=== PATIENT | female | born 1975 | race Caucasian/White ===

== ENCOUNTER 2021-02-13 16:13 | Observation (INO) | payer BC ==
[2021-02-13] MEDS ORDERED: Sodium Chloride 0.9% 1000 ML 1,000 ML IV STA ×2 (16:30→17:56)
[2021-02-13] MEDS ORDERED: Zofran 4 MG/2 ML VIAL IV ONE ×2 (16:30→17:58)
--- NOTE | 2021-02-13 16:42 | ERPHSYRPT ---
- History of Present Illness Source: patient Exam Limitations: no limitations Patient Subjective Stated Complaint: vomiting x 5 days Triage Nursing Assessment: pt to ED c/o vomiting x 5 days. COVID positive last week and abd pain/vomiting worsened since dx. reports 20-30 emesis per day when attempting to eat or drink anything, however is tolerating gatorade po on arrival to ED. pt reports she has not vomited since starting to drink this and is about half through bottle. denies bowel issues, no SOB/CP reported. rates abd pain 12/24. Physician History: 45 yo wf w +CV19 on 02/09/21 presents w cough/coryza/PRATT/N/V/myalgias/fever all starting on 02/05/21. Timing/Duration: other (02/05/21) Cough Quality/Degree: dry cough Possible Cause: no prior episodes Modifying Factors: Improves With: coughing, exertion Associated Symptoms: fever, chills, cough, muscle aches, nasal congestion, nasal drainage, shortness of breath Allergies/Adverse Reactions: No Known Drug Allergies Allergy (Verified 02/13/21 16:32) Home Medications: Amitriptyline HCl [Elavil] 50 mg PO DAILY 09/07/16 [History] Escitalopram Oxalate [Lexapro] 20 mg PO BID 09/07/16 [History] OLANZapine [Zyprexa] 15 mg PO DAILY 09/07/16 [History] PANTOPRAZOLE 40 mg Tablet [Protonix 40MG Tablet] 40 mg PO DAILY 09/07/16 [History] Pramipexole Di-HCl [Mirapex] 0.125 mg PO DAILY 09/07/16 [History] Triamterene/Hydrochlorothiazid [Triamterene-Hctz 37.5-25 mg Cp] 1 each PO DAILY 09/07/16 [History] Trazodone HCl 300 mg PO HS 06/05/17 [History] Celecoxib [Celebrex] 200 mg PO BID 09/23/17 [History] Zolpidem Tartrate 10 mg [Ambien 10 MG] 10 mg PO QHS 02/13/21 [History] Hx Tetanus, Diphtheria Vaccination/Date Given: Yes Hx Influenza Vaccination/Date Given: No Hx Pneumococcal Vaccination/Date Given: No Immunizations Up to Date: No Travel Risk - International Travel Have you traveled outside of the country in past 3 weeks: No - Coronavirus Screening Symptoms: Fever, Cough: New Onset, Vomiting/Diarrhea, Loss of Taste or Smell, Headaches/Body Aches/Fatigue Close contact with a COVID-19 positive Pt in past 14-21 Days: Yes - Vaccine Status Have you recieved a Covid-19 vaccination: No - Review of Systems Constitutional: Fever, Chills, Fatigue, Lethargy Eyes: No Symptoms Ears, Nose, & Throat: No Symptoms, Snoring Respiratory: Cough, Dyspnea Cardiac: No Symptoms Abdominal/Gastrointestinal: No Symptoms, Nausea, Vomiting, No Diarrhea Genitourinary Symptoms: No Symptoms Musculoskeletal: No Symptoms, Arthralgias, Myalgias Skin: No Symptoms Neurological: No Symptoms Psychological: No Symptoms Endocrine: No Symptoms Hematologic/Lymphatic: No Symptoms Immunological/Allergic: No Symptoms - Past Medical History Pertinent Past Medical History: Yes Neurological History: No Pertinent History ENT History: No Pertinent History Cardiac History: Hypertension Respiratory History: No Pertinent History Endocrine Medical History: No Pertinent History Musculoskeletal History: Osteoarthritis GI Medical History: No Pertinent History History: No Pertinent History Psycho-Social History: No Pertinent History Female Reproductive Disorders: No Pertinent History - Past Surgical History Past Surgical History: Yes Neuro Surgical History: No Pertinent History Cardiac: No Pertinent History Respiratory: No Pertinent History Gastrointestinal: Cholecystectomy, Other Genitourinary: No Pertinent History Musculoskeletal: No Pertinent History Female Surgical History: No Pertinent History Other Surgical History: T&A. gastric bypass -2009 - Social History Smoking Status: Never smoker Exposure to second hand smoke: No Drug Use: none Patient Lives Alone: No Significant Family History: no pertinent family hx - Female History Hx Now: No - Nursing Vital Signs Nursing Vital Signs: Initial Vital Signs Temperature 99.5 F 02/13/21 16:23 Pulse Rate 100 H 02/13/21 16:23 Respiratory Rate 20 02/13/21 16:23 Blood Pressure 123/82 02/13/21 16:23 O2 Sat by Pulse Oximetry 92 L 02/13/21 16:23 Pain Scale Pain Intensity 6 Low sats/Tachycardic - Physical Exam General Appearance: no apparent distress Eye Exam: PERRL/EOMI, eyes nml inspection Ears, Nose, Throat Exam: normal ENT inspection, TMs normal Neck Exam: normal inspection, non-tender, supple, full range of motion, No meningismus, No mass, No Brudzinski, No Kernig's Respiratory Exam: normal breath sounds, lungs clear, airway intact, No respiratory distress Cardiovascular Exam: tachycardia Gastrointestinal/Abdomen Exam: soft, normal bowel sounds, No tenderness Back Exam: normal inspection, normal range of motion, No CVA tenderness Extremity Exam: normal inspection, normal range of motion Neurologic Exam: alert, oriented x 3, cooperative, 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, normal mood/affect, sensation nml, No motor deficits, No sensory deficit Skin Exam: normal color, warm, dry Lymphatic Exam: No adenopathy SpO2 Interpretation: normal SpO2: 92 (Borderline) - Course Nursing assessment & vital signs reviewed: Yes - Radiology Exams Chest X-ray Interpretation: Interpreted by me (CV19 appearance) Ordered Tests: Active Orders 24 hr Category Date Time Status IV Insertion STAT Care 02/13/21 16:30 Completed CHEST 1 VIEW (PORTABLE) Stat Exams 02/13/21 17:33 Taken CBC W DIFF Stat Lab 02/13/21 16:38 Completed CMP AM.LAB Lab 02/14/21 04:00 Ordered CMP Stat Lab 02/13/21 16:38 Completed D-DIMER QUANTITATIVE Routine Lab 02/13/21 19:40 Completed NT PRO BNP AM.LAB Lab 02/14/21 04:00 Ordered TROPONIN Q3H Lab 02/13/21 16:38 Completed TROPONIN Q3H Lab 02/13/21 19:40 Completed Medication Summary Generic Name Dose Route Start Last Admin Trade Name Freq PRN Reason Stop Dose Admin Acetaminophen 1,000 mg 02/13/21 21:13 Tylenol Extra Strength 500 Mg PO 03/15/21 21:12 Q4H PRN PRN HEADACHE Al Hydrox/Mg Hydrox/Simethicone 30 ml 02/13/21 21:19 02/14/21 00:26 Maalox Es 30 Ml Unit Dose PO 03/15/21 21:18 30 ml Q2H PRN PRN Administration INDIGESTION Albuterol Sulfate 4 puff 02/13/21 18:21 Ventolin Common Canister IH 03/15/21 18:20 Q4H PRN PRN SHORTNESS OF BREATH/WHEEZING Celecoxib 200 mg 02/13/21 22:00 02/13/21 22:48 Celebrex 100 Mg PO 03/15/21 21:59 200 mg BID BLOSSOM Administration Dexamethasone Sodium Phosphate 8 mg 02/14/21 10:00 Decadron 4 Mg Inj IV 03/16/21 09:59 DAILY BLOSSOM Enoxaparin Sodium 40 mg 02/14/21 10:00 02/13/21 21:28 Enoxaparin Sodium SQ 03/16/21 09:59 40 mg DAILY BLOSSOM Administration Escitalopram Oxalate 20 mg 02/13/21 22:00 02/13/21 22:48 Lexapro 10 Mg PO 03/15/21 21:59 20 mg BID BLOSSOM Administration Famotidine 20 mg 02/13/21 22:00 02/13/21 21:28 Pepcid 20 Mg Vial IV 03/15/21 21:59 20 mg Q12HT BLOSSOM Administration Remdesivir 100 mg/ Sodium 100 mls @ 100 mls/hr 02/14/21 18:26 Chloride IV 02/17/21 19:25 Q24H BLOSSOM Sodium Chloride 1,000 mls @ 100 mls/hr 02/13/21 18:30 02/13/21 19:57 Sodium Chloride 0.9% 1000 Ml IV 03/15/21 18:29 100 mls/hr .Q10H BLOSSOM Administration Insulin Human Lispro 0 unit 02/13/21 21:21 Humalog SQ 03/15/21 21:20 UD PRN HYPERGLYCEMIA Magnesium Hydroxide 30 ml 02/13/21 18:26 Milk Of Magnesia 30 Ml PO 03/15/21 18:25 HS PRN PRN CONSTIPATION Ondansetron HCl 4 mg 02/13/21 18:21 02/13/21 22:49 Zofran 4 Mg/2 Ml Vial IV 03/15/21 18:20 4 mg Q6H PRN PRN Administration NAUSEA/VOMITING Pantoprazole Sodium 40 mg 02/14/21 10:00 Protonix 40 Mg Iv IV 03/16/21 09:59 Q24H10 BLOSSOM Trazodone HCl 300 mg 02/13/21 22:00 02/13/21 22:48 Desyrel 150 Mg PO 03/15/21 21:59 300 mg HS BLOSSOM Administration Zolpidem Tartrate 10 mg 02/13/21 22:00 02/13/21 22:49 Ambien 10 Mg PO 03/15/21 21:59 10 mg HS BLOSSOM Administration Discontinued Medications Generic Name Dose Route Start Last Admin Trade Name Freq PRN Reason Stop Dose Admin Dexamethasone Sodium Phosphate 6 mg 02/13/21 17:57 02/13/21 18:12 Decadron 10mg Inj. IV 02/13/21 17:58 6 mg STAT ONE Administration Dexamethasone Sodium Phosphate Confirm 02/13/21 18:10 Decadron 10mg Inj. Administered 02/13/21 18:11 Dose 10 mg .ROUTE .STK-MED ONE Dexamethasone Sodium Phosphate 4 mg 02/14/21 10:00 Decadron 4 Mg Inj IV 03/16/21 09:59 DAILY BLOSSOM Docusate Sodium 100 mg 02/13/21 18:26 Colace 100 Mg PO 03/15/21 18:25 BIDPRN PRN CONSTIPATION Enoxaparin Sodium Confirm 02/13/21 21:27 Enoxaparin Sodium Administered 02/13/21 21:28 Dose 40 mg SQ .STK-MED ONE Sodium Chloride 1,000 mls @ 999 mls/hr 02/13/21 16:30 02/13/21 18:19 Sodium Chloride 0.9% 1000 Ml IV 02/13/21 17:30 Infused .Q1H1M STA Infusion Sodium Chloride Confirm 02/13/21 16:43 Sodium Chloride 0.9% 1000 Ml Administered 02/13/21 16:44 Dose 1,000 mls @ ud .ROUTE .STK-MED ONE Sodium Chloride 1,000 mls @ 999 mls/hr 02/13/21 17:56 02/13/21 19:27 Sodium Chloride 0.9% 1000 Ml IV 02/13/21 18:56 Infused .Q1H1M STA Infusion Remdesivir 200 mg/ Sodium 250 mls @ 125 mls/hr 02/13/21 18:00 02/13/21 21:28 Chloride IV 02/13/21 19:59 125 mls/hr ONCE ONE Administration Sodium Chloride Confirm 02/13/21 18:10 Sodium Chloride 0.9% 1000 Ml Administered 02/13/21 18:11 Dose 1,000 mls @ ud .ROUTE .STK-MED ONE Insulin Human Lispro 0 unit 02/13/21 18:21 Humalog SQ 03/15/21 18:20 UD PRN HYPERGLYCEMIA Ondansetron HCl 4 mg 02/13/21 16:30 02/13/21 16:45 Zofran 4 Mg/2 Ml Vial IV 02/13/21 16:31 4 mg STAT ONE Administration Ondansetron HCl Confirm 02/13/21 16:43 Zofran 4 Mg/2 Ml Vial Administered 02/13/21 16:44 Dose 4 mg .ROUTE .STK-MED ONE Ondansetron HCl 4 mg 02/13/21 17:58 02/13/21 18:12 Zofran 4 Mg/2 Ml Vial IV 02/13/21 17:59 4 mg STAT ONE Administration Ondansetron HCl Confirm 02/13/21 18:10 Zofran 4 Mg/2 Ml Vial Administered 02/13/21 18:11 Dose 4 mg .ROUTE .STK-MED ONE Lab/Rad Data: Laboratory Result Diagrams 02/13/21 16:38 02/13/21 16:38 Laboratory Results 02/13/21 02/13/21 02/13/21 Range/Units 19:40 19:40 16:38 WBC (4.0-10.5) K/mm3 RBC (4.1-5.4) M/mm3 Hgb (12.0-16.0) gm/dl Hct (35-47) % MCV (78-100) fl MCH (26-32) pg MCHC (32-36) g/dl RDW (11.5-14.0) % Plt Count (150-450) K/mm3 MPV (7.5-11.0) fl Gran % (36.0-66.0) % Eos # (Auto) (0-0.5) Absolute Lymphs (auto) (1.0-4.6) Absolute Monos (auto) (0.0-1.3) Lymphocytes % (24.0-44.0) % Monocytes % (0.0-12.0) % Eosinophils % (0.00-5.0) % Basophils % (0.0-0.4) % Absolute Granulocytes (1.4-6.9) Basophils # (0-0.4) D-Dimer 1561 H* (215-500) ng/mL Sodium 131 L (137-145) mmol/L Potassium 3.1 L (3.5-5.1) mmol/L Chloride 95 L (98-107) mmol/L Carbon Dioxide 22 (22-30) mmol/L Anion Gap 17.2 H (5-15) MEQ/L BUN 17 (7-17) mg/dL Creatinine 1.17 H (0.52-1.04) mg/dL Estimated GFR 52.9 ML/MIN Glucose 180 H (74-106) mg/dL Calcium 8.9 (8.4-10.2) mg/dL Total Bilirubin 0.50 (0.2-1.3) mg/dL AST 57 H (14-36) U/L ALT 30 (0-35) U/L Alkaline Phosphatase 80 (38-126) U/L Troponin I < 0.012 (0.000-0.034) ng/mL Serum Total Protein 8.1 (6.3-8.2) g/dL Albumin 4.4 (3.5-5.0) g/dL 02/13/21 02/13/21 Range/Units 16:38 16:38 WBC 9.0 (4.0-10.5) K/mm3 RBC 5.12 (4.1-5.4) M/mm3 Hgb 14.4 (12.0-16.0) gm/dl Hct 42.9 (35-47) % MCV 83.8 (78-100) fl MCH 28.1 (26-32) pg MCHC 33.6 (32-36) g/dl RDW 13.5 (11.5-14.0) % Plt Count 231 (150-450) K/mm3 MPV 10.2 (7.5-11.0) fl Gran % 79.5 H (36.0-66.0) % Eos # (Auto) 0 (0-0.5) Absolute Lymphs (auto) 1.36 (1.0-4.6) Absolute Monos (auto) 0.49 (0.0-1.3) Lymphocytes % 15.0 L (24.0-44.0) % Monocytes % 5.4 (0.0-12.0) % Eosinophils % 0.0 (0.00-5.0) % Basophils % 0.1 (0.0-0.4) % Absolute Granulocytes 7.18 H (1.4-6.9) Basophils # 0.01 (0-0.4) D-Dimer (215-500) ng/mL Sodium (137-145) mmol/L Potassium (3.5-5.1) mmol/L Chloride (98-107) mmol/L Carbon Dioxide (22-30) mmol/L Anion Gap (5-15) MEQ/L BUN (7-17) mg/dL Creatinine (0.52-1.04) mg/dL Estimated GFR ML/MIN Glucose (74-106) mg/dL Calcium (8.4-10.2) mg/dL Total Bilirubin (0.2-1.3) mg/dL AST (14-36) U/L ALT (0-35) U/L Alkaline Phosphatase (38-126) U/L Troponin I < 0.012 (0.000-0.034) ng/mL Serum Total Protein (6.3-8.2) g/dL Albumin (3.5-5.0) g/dL - Progress Progress: improved Progress Note: 02/13/21 17:59 1L NS IV xw 4mg IV Zofran x2 6mg IV Decadron 02/14/21 02:[address] Casarez Discussed with Dr.: Other (Admit per Dr. Copeland) Counseled pt/family regarding: lab results, diagnosis, need for follow-up, rad results - Departure Departure Disposition: Observation Clinical Impression: COVID-19 Condition: Stable Critical Care Time: No
[2021-02-13] MEDS ORDERED: Zofran 4 MG/2 ML VIAL ONE ×2 (16:43→18:10)
[2021-02-13] MEDS ORDERED: Sodium Chloride 0.9% 1000 ML 1,000 ML ONE ×2 (16:43→18:10)
[2021-02-13 16:54] LABS: Absolute Neutrophil Ct (ANC) 7.18 (1.4-6.9); BASOPHIL % 0.1 % (0.0-0.4); Basophil (Absolute #) 0.01 (0-0.4); Eosinophil (Absolute #) 0 (0-0.5); Hematocrit 42.9 % (35-47); Hemoglobin 14.4 gm/dl (12.0-16.0); Lymphocyte (Absolute #) 1.36 (1.0-4.6); Mean Cell Volume 83.8 fl (78-100); Mean Corpuscular Hemoglobin 28.1 pg (26-32); Mean Corpuscular Hgb Concent. 33.6 g/dl (32-36); Mean Platelet Volume 10.2 fl (7.5-11.0); Monocyte (Absolute #) 0.49 (0.0-1.3); Monocytes % 5.4 % (0.0-12.0); Neutrophil % 79.5 % (36.0-66.0); Platelet Count 231 K/mm3 (150-450); Red Blood Count 5.12 M/mm3 (4.1-5.4); Red Cell Distribution Width 13.5 % (11.5-14.0)
[2021-02-13 17:04] LABS: ALBUMIN 4.4 g/dL (3.5-5.0); ANION GAP 17.2 MEQ/L (5-15); BILIRUBIN,TOTAL 0.5 mg/dL (0.2-1.3); Calcium 8.9 mg/dL (8.4-10.2); Creatinine 1 1.17 mg/dL (0.52-1.04); EST GLOMERULAR FILTRATION RATE 52.9 ML/MIN; Potassium 3.1 mmol/L (3.5-5.1); Total Protein 8.1 g/dL (6.3-8.2)
[2021-02-13] MEDS ORDERED: DECADRON 10MG INJ. IV ONE (17:57)
[2021-02-13] MEDS ORDERED: REMDESIVIR 200 MG in Sodium Chloride 0.9% 250 ML 250 ML IV ONE (18:00)
[2021-02-13] MEDS ORDERED: DECADRON 10MG INJ. ONE (18:10)
[2021-02-13] MEDS ORDERED: VENTOLIN COMMON CANISTER IH PRN (18:21)
[2021-02-13] MEDS ORDERED: HUMALOG SQ PRN ×2 (18:21→21:21)
[2021-02-13] MEDS ORDERED: Zofran 4 MG/2 ML VIAL IV PRN (18:21)
[2021-02-13] MEDS ORDERED: MILK OF MAGNESIA 30 ML PO PRN (18:26)
[2021-02-13] MEDS ORDERED: Colace 100 MG PO PRN (18:26)
[2021-02-13] MEDS: Sodium Chloride 0.9% 1000 ML 1,000 ML IV SCH (19:57)
[2021-02-13] MEDS ORDERED: TYLENOL EXTRA STRENGTH 500 MG PO PRN (21:13)
[2021-02-13] MEDS ORDERED: ENOXAPARIN SODIUM SQ ONE (21:27)
[2021-02-13] MEDS: ENOXAPARIN SODIUM SQ SCH (21:28)
[2021-02-13] MEDS: Pepcid 20 MG VIAL IV SCH (21:28)
[2021-02-13] MEDS: MAALOX ES 30 ML UNIT DOSE PO PRN (22:40)
[2021-02-13] MEDS: celeBREX 100 MG PO SCH (22:48)
[2021-02-13] MEDS: Desyrel 150 MG PO SCH (22:48)
[2021-02-13] MEDS: Lexapro 10 MG PO SCH (22:48)
[2021-02-13] MEDS: Ambien 10 MG PO SCH (22:49)
[2021-02-14] MEDS: MAALOX ES 30 ML UNIT DOSE PO PRN ×4 (00:26→15:36)
[2021-02-14 05:39] LABS: Hematocrit 40.4 % (35-47); Hemoglobin 13.1 gm/dl (12.0-16.0); Mean Corpuscular Hemoglobin 27.9 pg (26-32); Mean Corpuscular Hgb Concent. 32.4 g/dl (32-36); Mean Platelet Volume 10.2 fl (7.5-11.0); Platelet Count 212 K/mm3 (150-450); Red Cell Distribution Width 13.6 % (11.5-14.0)
[2021-02-14 06:32] LABS: ALBUMIN 3.8 g/dL (3.5-5.0); ALKALINE PHOSPHATASE 66 U/L (38-126); ANION GAP 15.9 MEQ/L (5-15); BLOOD UREA NITROGEN 17 mg/dL (7-17); CHLORIDE 102 mmol/L (98-107); Calcium 7.7 mg/dL (8.4-10.2); Carbon Dioxide 21 mmol/L (22-30); Creatinine 1 0.91 mg/dL (0.52-1.04); EST GLOMERULAR FILTRATION RATE > 60.0 ML/MIN; Glucose 248 mg/dL (74-106); NT PRO BNP 94.3 pg/mL (0-450); Potassium 3.5 mmol/L (3.5-5.1); SGOT/AST 52 U/L (14-36); SGPT/ALT 30 U/L (0-35); SODIUM 136 mmol/L (137-145); Total Protein 7.2 g/dL (6.3-8.2)
[2021-02-14 08:01] LABS: Lymphocytes 26 % (24-44); Monocyte 2 % (0.0-12.0); Neutrophils 72 % (36.0-66.0); Platelet Estimate NORMAL (NORMAL); Total Cells Counted 100; Toxic Granulation 1+
--- NOTE | 2021-02-14 08:35 | XRAY ---
Indication: Positive Covid 19. Comparison: November 26, 2019. Portable chest demonstrates new bilateral patchy airspace disease without consolidation/large effusion. Again a few incidental calcified granulomas. Remaining heart and bony thorax unremarkable.
[2021-02-14] MEDS ORDERED: OLANZAPINE 15 MG PO SCH (10:00)
[2021-02-14] MEDS ORDERED: AMITRIPTYLINE HCL 50 MG PO SCH (10:00)
[2021-02-14] MEDS ORDERED: Decadron 4 MG INJ IV SCH ×2 (10:00)
[2021-02-14] MEDS ORDERED: NON-FORMULARY ITEM (Triamterene/Hydrochlorothiazid [Triamterene-Hctz 37.5-25 Mg Cp] 1 EACH PO SCH (10:00)
[2021-02-14] MEDS ORDERED: PROTONIX 40 MG IV IV SCH (10:00)
[2021-02-14] MEDS ORDERED: NON-FORMULARY ITEM (Pramipexole Di-Hcl [Mirapex] 0.125 MG) PO SCH (10:00)
[2021-02-14] MEDS: Sodium Chloride 0.9% 1000 ML 1,000 ML IV SCH (11:28)
[2021-02-14] MEDS: Protonix 40MG Tablet PO SCH (11:28)
[2021-02-14] MEDS: ENOXAPARIN SODIUM SQ SCH (11:28)
[2021-02-14] MEDS: DECADRON 10MG INJ. IV SCH (11:28)
[2021-02-14] MEDS: Pepcid 20 MG VIAL IV SCH ×2 (11:29→20:54)
[2021-02-14] MEDS: celeBREX 100 MG PO SCH ×2 (11:30→20:55)
[2021-02-14] MEDS: zyPREXA 5MG TABLET PO SCH (11:31)
[2021-02-14] MEDS: Lexapro 10 MG PO SCH ×2 (11:31→20:57)
[2021-02-14] MEDS: Maxzide-25MG Tablet PO SCH (11:32)
[2021-02-14] MEDS: Mirapex 0.5 MG Tablet PO SCH (11:33)
--- NOTE | 2021-02-14 11:53 | HP ---
CHIEF COMPLAINT: Vomiting for five days. HISTORY OF PRESENT ILLNESS: The patient is a 45-year-old white female who states she tested positive for COVID four days ago and has been vomiting since that time. She has no history of ulcers. She has had her gallbladder taken out and had gastric bypass surgery but no problems until this happened. She has been able to sip fluids. No diarrhea. No shortness of breath. Abdominal pain but more in her esophagus. 0Symptoms of fever, cough, new onset vomiting. No diarrhea. She said she has a loss of taste and aching all over. She was in contact with a COVID positive patient seven days ago. has had the vaccine and he is negative and the kids have not caught it yet. She has got teenage kids, I guess. MEDICATIONS: Amitriptyline 50, Lexapro 20, [place] 10/325 every 4 hours PRN knee pain, back pain. Lisinopril 20 approximately 350 t.i.d., Zyprexa 15 q.d. for depression, Protonix 40 q.d., MiraLAX 0.125 for restless leg I assume, Dyazide 1 q.d., trazodone 300 h.s. for sleep, Celebrex 200 q.d., Neurontin 300 to 600 q.h.s. for restless leg and nerve pain, Zanaflex 4 mg h.s. ALLERGIES: NKDA. PAST MEDICAL HISTORY: Hypertension. PAST SURGICAL HISTORY: History of gastric bypass. Cholecystectomy. REVIEW OF SYSTEMS: CONSTITUTIONAL: Fever, chills, sweats. HEENT: No specific problems. RESPIRATORY: She said she does have an occasional cough. CARDIAC: No chest pain. Hypertension. ABDOMEN: Nausea, vomiting severe. History of gastric bypass. Cholecystectomy. : No problems urinating. EXTREMITIES: Apparently she has restless leg syndrome. PSYCHOLOGIC: Apparently she had in the past severe depression and on medication and she said she has severe problems falling asleep for many years. NEUROLOGIC: No complaints. SOCIAL HISTORY: Nonsmoker. . Two teenage children. PHYSICAL EXAMINATION: VITAL SIGNS: Temperature 100F, pulse 100, respirations 20. HEENT: Pupils equal and reactive to light. Hearing and seeing. NECK: Normal. CHEST: Clear. CVS: No murmurs or gallops. ABDOMEN: Obese. Tender all over, increased bowel sounds. EXTREMITIES: No edema. IMPRESSION: The patient has COVID gastroenteritis. She also had some COVID pneumonitis as the O2 is dropping and she has been placed on oxygen and is now at 4 liters. She is comfortable, pleasant and will continue with Dexamethasone, Zofran, Remdesivir and anticoagulation.
[2021-02-14] MEDS ORDERED: MORPHINE SULFATE 10 MG/ML SQ PRN (13:58)
[2021-02-14] MEDS ORDERED: REMDESIVIR 100 MG in Sodium Chloride 0.9% 100 ML BAG 100 ML IV SCH (17:00)
[2021-02-14] MEDS ORDERED: Carafate SUSPENSION 1000 MG/10 ML PO SCH (17:19)
[2021-02-14] MEDS ORDERED: MORPHINE SULFATE 10 MG/ML IV PRN (17:20)
[2021-02-14] MEDS: Carafate SUSPENSION 1000 MG/10 ML PO SCH ×2 (17:40→20:48)
[2021-02-14] MEDS: Ambien 10 MG PO SCH (20:53)
[2021-02-14] MEDS: Desyrel 150 MG PO SCH (20:58)
[2021-02-15 05:52] LABS: Absolute Neutrophil Ct (ANC) 7.86 (1.4-6.9); Basophil (Absolute #) 0 (0-0.4); Eosinophil (Absolute #) 0 (0-0.5); Hematocrit 38.8 % (35-47); Hemoglobin 12.5 gm/dl (12.0-16.0); Lymphocyte (Absolute #) 1.64 (1.0-4.6); Lymphocytes % 16.2 % (24.0-44.0); Mean Corpuscular Hemoglobin 27.7 pg (26-32); Mean Corpuscular Hgb Concent. 32.2 g/dl (32-36); Mean Platelet Volume 10.8 fl (7.5-11.0); Monocyte (Absolute #) 0.64 (0.0-1.3); Monocytes % 6.3 % (0.0-12.0); Neutrophil % 77.5 % (36.0-66.0); Platelet Count 267 K/mm3 (150-450); Red Blood Count 4.51 M/mm3 (4.1-5.4); Red Cell Distribution Width 13.9 % (11.5-14.0); White Blood Count 10.1 K/mm3 (4.0-10.5)
[2021-02-15 06:11] LABS: INR 1.01 (0.8-3.0); PROTIME 11.9 SECONDS (9.4-12.5)
[2021-02-15 06:33] LABS: ALBUMIN 3.4 g/dL (3.5-5.0); ALKALINE PHOSPHATASE 228 U/L (38-126); ANION GAP 12.9 MEQ/L (5-15); BLOOD UREA NITROGEN 16 mg/dL (7-17); CHLORIDE 105 mmol/L (98-107); Calcium 7.9 mg/dL (8.4-10.2); Carbon Dioxide 26 mmol/L (22-30); Creatinine 1 0.86 mg/dL (0.52-1.04); EST GLOMERULAR FILTRATION RATE > 60.0 ML/MIN; Glucose 174 mg/dL (74-106); Potassium 3.9 mmol/L (3.5-5.1); SGPT/ALT 480 U/L (0-35); SODIUM 140 mmol/L (137-145); Total Protein 6.6 g/dL (6.3-8.2)
[2021-02-15 06:57] LABS: SGOT/AST 970 U/L (14-36)
[2021-02-15 07:19] VITALS: BP 122/67
[2021-02-15] MEDS: Carafate SUSPENSION 1000 MG/10 ML PO SCH (07:59)
[2021-02-15] MEDS: Sodium Chloride 0.9% 1000 ML 1,000 ML IV SCH (08:26)
[2021-02-15] MEDS ORDERED: ENOXAPARIN SODIUM SQ SCH (10:00)
[2021-02-15] MEDS: Pepcid 20 MG VIAL IV SCH (10:11)
[2021-02-15] MEDS: Protonix 40MG Tablet PO SCH (10:11)
[2021-02-15] MEDS: DECADRON 10MG INJ. IV SCH (10:11)
[2021-02-15] MEDS: Mirapex 0.5 MG Tablet PO SCH (10:12)
[2021-02-15] MEDS: zyPREXA 5MG TABLET PO SCH (10:12)
[2021-02-15] MEDS: Maxzide-25MG Tablet PO SCH (10:12)
[2021-02-15] MEDS: celeBREX 100 MG PO SCH (10:13)
[2021-02-15] MEDS: Lexapro 10 MG PO SCH (10:13)
[2021-02-15 10:36] VITALS: PULSE 62; O2SAT 95
== END 2021-02-15 11:17 | disposition home or self-care (01) ==
LOC: ED 16:13 → MED SURG 20:14
PROVIDERS: ADMIT Family Medicine; ATTEND Family Medicine
DX: K52.9 Noninfective gastroenteritis and colitis, unspecified (principal); U07.1 COVID-19; J12.82 Pneumonia due to coronavirus disease 2019; Z79.899 Other long term (current) drug therapy; R51.9 Headache, unspecified; I10 Essential (primary) hypertension; Z98.84 Bariatric surgery status
CPT/HCPCS: 36000; 36415; 71045; 80053; 82947; 83036; 83880; 84484; 85025; 85379; 85610; 93268; 94762; 96360; 96374; 96375; 96376; 99285; G0378; J1100; J1650; J1817; J2270; J2405; A9270-GY

== ENCOUNTER 2023-05-21 02:29 | Observation (INO) | payer BC ==
--- NOTE | 2023-05-21 02:33 | ERPHSYRPT ---
- History of Present Illness Time Seen by Provider: 05/21/23 02:33 Source: patient Exam Limitations: no limitations Physician History: This is an obese 47-year-old white female patient of Dr. Marx who has had 2 to 3-day history of worsening shortness of breath, productive cough of yellowish sputum and low-grade fever. She was seen at [facility] on Saturday prior to this evaluation and given a prescription for albuterol inhaler, Tessalon Perle cough suppressant, and steroid Dosepak. Her symptoms have not improved. She does not have chest pain. Patient states that she also was swabbed for viral illnesses and they were negative. Her room air oxygen saturation level is 91 to 92%. Patient has a history of gastroesophageal reflux disease but no pulmonary issue s. She has no known heart issues. Patient drove herself into the hospital emergency department. She states she cannot get a ride home. Timing/Duration: day(s) (2 to 3 days) Severity of Dyspnea-Max: moderate Severity of Dyspnea-Current: moderate Possible Cause: no prior episodes Modifying Factors: Improves With: coughing, deep breath Associated Symptoms: cough, wheezing, productive cough, No chest pain/discomfort Allergies/Adverse Reactions: No Known Drug Allergies Allergy (Verified 05/21/23 02:30) Home Medications: Escitalopram Oxalate [Lexapro] 20 mg PO BID 09/07/16 [History] PANTOPRAZOLE 40 mg Tablet [Protonix 40MG Tablet] 40 mg PO DAILY 09/07/16 [History] Pramipexole Di-HCl [Mirapex] 0.125 mg PO DAILY 09/07/16 [History] Trazodone HCl 300 mg PO HS 06/05/17 [History] Zolpidem Tartrate 10 mg [Ambien 10 MG] 10 mg PO QHS 02/13/21 [History] Albuterol Sulfate [Proair Respiclick] 2 puff IH Q4H PRN PRN 05/21/23 [History] Benzonatate 200 mg PO TID 05/21/23 [History] Methylprednisolone 4 mg [Medrol 4 mg] 4 mg PO UD 05/21/23 [History] Hx Tetanus, Diphtheria Vaccination/Date Given: Yes Hx Influenza Vaccination/Date Given: No Hx Pneumococcal Vaccination/Date Given: No Travel Risk - International Travel Have you traveled outside of the country in past 3 weeks: No - Coronavirus Screening Are you exhibiting any of the following symptoms?: Yes Symptoms: Cough: New Onset, Shortness of Breath Close contact with a COVID-19 positive Pt in past 14-21 Days: No - Vaccine Status Have you recieved a Covid-19 vaccination: No - Review of Systems Constitutional: No Symptoms Eyes: No Symptoms Ears, Nose, & Throat: No Symptoms Respiratory: Cough, Dyspnea on Exertion ([place]), Wheezing Cardiac: No Symptoms Abdominal/Gastrointestinal: No Symptoms Genitourinary Symptoms: No Symptoms Musculoskeletal: No Symptoms Skin: No Symptoms Neurological: No Symptoms Psychological: No Symptoms Endocrine: No Symptoms Hematologic/Lymphatic: No Symptoms Immunological/Allergic: No Symptoms All Other Systems: Reviewed and Negative - Past Medical History Pertinent Past Medical History: Yes Neurological History: No Pertinent History ENT History: No Pertinent History Cardiac History: Hypertension Respiratory History: No Pertinent History Endocrine Medical History: No Pertinent History Musculoskeletal History: Osteoarthritis GI Medical History: No Pertinent History History: No Pertinent History Psycho-Social History: No Pertinent History Female Reproductive Disorders: No Pertinent History - Past Surgical History Past Surgical History: Yes Neuro Surgical History: No Pertinent History Cardiac: No Pertinent History Respiratory: No Pertinent History Gastrointestinal: Cholecystectomy, Other Genitourinary: No Pertinent History Musculoskeletal: No Pertinent History Female Surgical History: No Pertinent History Other Surgical History: T&A. gastric bypass -2009 - Social History Smoking Status: Never smoker Exposure to second hand smoke: No Drug Use: none Patient Lives Alone: No Significant Family History: no pertinent family hx - Nursing Vital Signs Nursing Vital Signs: Initial Vital Signs Temperature 98.1 F 05/21/23 02:30 Pulse Rate 86 05/21/23 02:30 Respiratory Rate 22 05/21/23 02:30 Blood Pressure 149/88 05/21/23 02:30 O2 Sat by Pulse Oximetry 94 L 05/21/23 02:30 Pain Scale Pain Intensity 7 - Physical Exam General Appearance: no apparent distress, alert, anxiety, obese Eye Exam: PERRL/EOMI, eyes nml inspection Ears, Nose, Throat Exam: hearing grossly normal, normal ENT inspection, normal pharynx Neck Exam: normal inspection, non-tender, supple, full range of motion Respiratory Exam: airway intact, wheezing (Bilateral expiratory), No chest tenderness, No respiratory distress Cardiovascular/Chest Exam: normal heart sounds, regular rate/rhythm, normal peripheral pulses Abdominal/Gastrointestinal Exam: soft, normal bowel sounds, No tenderness Rectal Exam: not done Extremity Exam: non-tender, normal range of motion, normal inspection Neurologic Exam: alert, oriented x 3, cooperative, 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 as tested, normal mood/affect, nml cerebellar function, nml station & gait, sensation nml Skin Exam: normal color, warm, dry Lymphatic Exam: No adenopathy SpO2 Interpretation: borderline oxygenation O2 Delivery: Room Air - Course Nursing assessment & vital signs reviewed: Yes EKG Interpreted by Me: RATE (86), Sinus Rhythm, NORMAL AXIS, NORMAL INTERVALS, NORMAL QRS, NORMAL ST-T, Other (No acute ischemic changes on today's twelve-lead EKG.) Ordered Tests: Active Orders 24 hr Category Date Time Status EKG-ER Only STAT Care 05/21/23 02:51 Active IV Insertion STAT Care 05/21/23 02:51 Active CHEST 1 VIEW (PORTABLE) Stat Exams 05/21/23 02:54 Completed CHEST WITH CONTRAST [CT] Stat Exams 05/21/23 05:16 Completed LIVER OR SPLEEN [US] Stat Exams 05/21/23 06:27 Ordered BLOOD CULTURE Stat Lab 05/21/23 03:15 Received CBC AM.LAB Lab 05/22/23 04:00 Ordered CBC AM.LAB Lab 05/23/23 04:00 Ordered CBC AM.LAB Lab 05/24/23 04:00 Ordered CBC W DIFF Stat Lab 05/21/23 03:10 Completed CMP AM.LAB Lab 05/22/23 04:00 Ordered CMP AM.LAB Lab 05/23/23 04:00 Ordered CMP AM.LAB Lab 05/24/23 04:00 Ordered CMP AM.LAB Lab 05/25/23 04:00 Ordered CMP Stat Lab 05/21/23 03:10 Completed CULTURE,SPUTUM Stat Lab 05/21/23 05:18 Ordered MONO SCREEN Stat Lab 05/21/23 03:10 Completed NT PRO BNPII Stat Lab 05/21/23 03:10 Completed TROPONIN Q4H Lab 05/21/23 03:15 Completed TROPONIN Q4H Lab 05/21/23 07:00 Ordered TROPONIN Q4H Lab 05/21/23 11:00 Ordered Respiratory Therapy Assessment DAILY RT 05/21/23 03:11 Active Medication Summary Generic Name Dose Route Start Last Admin Trade Name Young PRN Reason Stop Dose Admin Sodium Chloride 500 mls @ 50 mls/hr 05/21/23 05:30 05/21/23 05:45 Sodium Chloride 0.9% 500 Ml IV 06/20/23 05:29 50 mls/hr .Q10H BLOSSOM Administration Discontinued Medications Generic Name Dose Route Start Last Admin Trade Name Young PRN Reason Stop Dose Admin Hydrocodone Bitart/Acetaminophen 10 ml 05/21/23 05:59 05/21/23 06:05 Hydrocodone/Acetaminophen 5 Ml Udcup PO 05/21/23 06:00 10 ml STAT STA Administration Hydrocodone Bitart/Acetaminophen Confirm 05/21/23 06:04 Hydrocodone/Acetaminophen 5 Ml Udcup Administered 05/21/23 06:05 Dose 10 ml .ROUTE .STK-MED ONE Albuterol/Ipratropium Confirm 05/21/23 03:07 Ipratropium/Albuterol Sulfate 3 Ml Ampul.Neb Administered 05/21/23 03:08 Dose 3 ml IH .STK-MED ONE Albuterol/Ipratropium 3 ml 05/21/23 03:10 05/21/23 03:12 Ipratropium/Albuterol Sulfate 3 Ml Ampul.Neb IH 05/21/23 03:11 3 ml STAT ONE Administration Methylprednisolone Sodium 0 mg 05/21/23 02:54 05/21/23 03:04 Succinate 125 mg/ Sterile IV 05/21/23 02:55 125 mg Water 2 ml STAT ONE Administration Ceftriaxone Sodium/Dextrose 1 g in 50 mls @ 100 mls/hr 05/21/23 05:04 05/21/23 05:47 Rocephin 1 Gm-D5w 50 Ml Bag IV 05/21/23 05:33 Infused STAT STA Infusion Ceftriaxone Sodium/Dextrose Confirm 05/21/23 05:11 Rocephin 1 Gm-D5w 50 Ml Bag Administered 05/21/23 05:12 Dose 1 g in 50 mls @ ud IV .STK-MED ONE Methylprednisolone Sodium Succinate Confirm 05/21/23 03:03 Methylprednis Sod Succ 125 Mg/2 Ml Vial Administered 05/21/23 03:04 Dose 125 mg .ROUTE .STK-MED ONE Sterile Water Confirm 05/21/23 03:03 Water For Injection,Sterile 10 Ml Vial Administered 05/21/23 03:04 Dose 10 ml IJ .K-MED ONE Lab/Rad Data: Laboratory Result Diagrams 05/21/23 03:10 05/21/23 03:10 Laboratory Results 05/21/23 05/21/23 05/21/23 Range/Units 03:15 03:15 03:10 WBC (4.0-10.5) x10^3/uL RBC (4.1-5.4) x10^6/uL Hgb (12.0-16.0) g/dL Hct (35-47) % MCV (78-100) fL MCH (26-32) pg MCHC (32-36) g/dL RDW (11.5-14.0) % Plt Count (150-450) x10^3/uL MPV (7.5-11.0) fL Gran % (36.0-66.0) % Immature Gran % (Auto) (0.00-0.4) % Nucleat RBC Rel Count (0.00-0.1) % Eos # (Auto) (0-0.5) x10^3/uL Immature Gran # (Auto) (0.00-0.03) x10^3u/L Absolute Lymphs (auto) (1.0-4.6) x10^3/uL Absolute Monos (auto) (0.0-1.3) x10^3/uL Absolute Nucleated RBC (0.00-0.01) x10^3u/L Lymphocytes % (24.0-44.0) % Monocytes % (0.0-12.0) % Eosinophils % (0.00-5.0) % Basophils % (0.0-0.4) % Absolute Granulocytes (1.4-6.9) x10^3/uL Basophils # (0-0.4) x10^3/uL Sodium (137-145) mmol/L Potassium (3.5-5.1) mmol/L Chloride (98-107) mmol/L Carbon Dioxide (22-30) mmol/L Anion Gap (5-15) MEQ/L BUN (7-17) mg/dL Creatinine (0.52-1.04) mg/dL Estimated GFR ML/MIN Glucose (74-106) mg/dL Calcium (8.4-10.2) mg/dL Total Bilirubin (0.2-1.3) mg/dL AST (14-36) U/L ALT (0-35) U/L Alkaline Phosphatase (38-126) U/L Troponin I < 0.012 (0.000-0.034) ng/mL NT-Pro-B Natriuret Pep (<300) pg/mL Serum Total Protein (6.3-8.2) g/dL Albumin (3.5-5.0) g/dL Monoscreen WEAKLY POSITIVE A (NEGATIVE) Influenza Type A Ag NEGATIVE (NEGATIVE) Influenza Type B Ag NEGATIVE (NEGATIVE) RSV (PCR) NEGATIVE (NEGATIVE) SARS-CoV-2 (PCR) NEGATIVE (NEGATIVE) 05/21/23 05/21/23 Range/Units 03:10 03:10 WBC 13.2 H (4.0-10.5) x10^3/uL RBC 4.46 (4.1-5.4) x10^6/uL Hgb 11.8 L (12.0-16.0) g/dL Hct 38.2 (35-47) % MCV 85.7 (78-100) fL MCH 26.5 (26-32) pg MCHC 30.9 L (32-36) g/dL RDW 14.2 H (11.5-14.0) % Plt Count 329 (150-450) x10^3/uL MPV 9.3 (7.5-11.0) fL Gran % 81.2 H (36.0-66.0) % Immature Gran % (Auto) 0.2 (0.00-0.4) % Nucleat RBC Rel Count 0.0 (0.00-0.1) % Eos # (Auto) 0.01 (0-0.5) x10^3/uL Immature Gran # (Auto) 0.03 (0.00-0.03) x10^3u/L Absolute Lymphs (auto) 1.72 (1.0-4.6) x10^3/uL Absolute Monos (auto) 0.70 (0.0-1.3) x10^3/uL Absolute Nucleated RBC 0.00 (0.00-0.01) x10^3u/L Lymphocytes % 13.0 L (24.0-44.0) % Monocytes % 5.3 (0.0-12.0) % Eosinophils % 0.1 (0.00-5.0) % Basophils % 0.2 (0.0-0.4) % Absolute Granulocytes 10.74 H (1.4-6.9) x10^3/uL Basophils # 0.02 (0-0.4) x10^3/uL Sodium 137 (137-145) mmol/L Potassium 3.7 (3.5-5.1) mmol/L Chloride 108 H (98-107) mmol/L Carbon Dioxide 21 L (22-30) mmol/L Anion Gap 12.1 (5-15) MEQ/L BUN 15 (7-17) mg/dL Creatinine 0.88 (0.52-1.04) mg/dL Estimated GFR 81.0 ML/MIN Glucose 102 (74-106) mg/dL Calcium 8.8 (8.4-10.2) mg/dL Total Bilirubin 0.40 (0.2-1.3) mg/dL AST 135 H (14-36) U/L ALT 347 H (0-35) U/L Alkaline Phosphatase 146 H (38-126) U/L Troponin I (0.000-0.034) ng/mL NT-Pro-B Natriuret Pep 452 (<300) pg/mL Serum Total Protein 7.0 (6.3-8.2) g/dL Albumin 3.6 (3.5-5.0) g/dL Monoscreen (NEGATIVE) Influenza Type A Ag (NEGATIVE) Influenza Type B Ag (NEGATIVE) RSV (PCR) (NEGATIVE) SARS-CoV-2 (PCR) (NEGATIVE) - Progress Progress: improved, re-examined Air Movement: fair Progress Note: 05/21/23 03:03 This patient's medical issue is 1 of moderate complexity. The level of complexity in the workup performed is based on review of the patient's past medical history, review of the patient's medication list, history present illness and physical findings on examination. Workup in this patient will be placing intravenous line, twelve-lead EKG, BNP, troponin level, chest x-ray, repeat viral studies, mono screening test, CBC, CMP. We will provide the patient with a nebulizer treatment and Solu-Medrol 120 mg intravenously. We will have respiratory therapy evaluate and treat this patient. 05/21/23 05:07 I interpreted the patient's laboratory data results. Patient does have a leukoc ytosis. She has a weakly positive monoscreen. Her LFTs are mild to moderately elevated. Chest x-ray was interpreted by the radiologist. The impression states suggestive of pulmonary infection left perihilar/hilar region. There is a nodule present in the right upper lobe. These findings were discussed with the patient 05/21/23 05:57 I spoke with telehospitalist Dr. Prabhakar. I reviewed the patient history, presenting complaint, laboratory and radiographic study results and response to our treatment. He was told we are awaiting the CT scan of the chest with contrast. He agrees to place the patient in observation. We will provide the patient with intravenous antibiotics, nebulizer treatments and RT evaluation and management while in the hospital setting. If the CT scan of the chest is positive for a pulmonary embolus, we will place the patient on Lovenox. Patient will transition to an oral anticoagulation agent in the hospital. 05/21/23 06:45 CT scan of chest with contrast was interpreted by the radiologist and I reviewed the impression. There is no pulmonary embolus. There is diffuse bilateral lung centrilobular nodular opacities. There is right lung lower lobe subpleural patchy areas of groundglass opacities mounting to consolidation. Blood Culture(s) Obtained: Yes Antibiotics given: Yes Counseled pt/family regarding: lab results, diagnosis, need for follow-up, rad results Medical Desision Making - Diagnostic Testing Diagnostic test were ordered, analyzed, and reviewed by me: Yes Radiological Interpretation: Reviewed by me, Teleradiologist Report - Risk of complications The pt has a high risk of morbidity or mortality based on: Decision regarding hospitilization or escalation of hosp level of care - Departure Departure Disposition: Observation Clinical Impression: Pulmonary infection, Mononucleosis, Hypoxia, Pulmonary nodule Condition: Fair Critical Care Time: No Referrals: JENN MARX [Primary Care Provider] - Follow up/PCP as directed
[2023-05-21] MEDS ORDERED: solu-MEDROL 125 MG, Sterile H2O 10 ml 2 ML IV ONE ×2 (02:54)
[2023-05-21] MEDS ORDERED: Sterile H2O 10 ml IJ ONE (03:03)
[2023-05-21] MEDS ORDERED: solu-MEDROL ONE (03:03)
[2023-05-21] MEDS ORDERED: DUONEB 0.5-3 MG/3 ml Neb IH ONE ×2 (03:07→03:10)
[2023-05-21 03:22] LABS: Absolute Neutrophil Ct (ANC) 10.74 x10^3/uL (1.4-6.9); BASOPHIL % 0.2 % (0.0-0.4); Basophil (Absolute #) 0.02 x10^3/uL (0-0.4); Eosinophil % 0.1 % (0.00-5.0); Eosinophil (Absolute #) 0.01 x10^3/uL (0-0.5); Hematocrit 38.2 % (35-47); Hemoglobin 11.8 g/dL (12.0-16.0); IMMATURE GRAN # 0.03 x10^3u/L (0.00-0.03); IMMATURE GRAN % 0.2 % (0.00-0.4); Lymphocyte (Absolute #) 1.72 x10^3/uL (1.0-4.6); Mean Cell Volume 85.7 fL (78-100); Mean Corpuscular Hemoglobin 26.5 pg (26-32); Mean Corpuscular Hgb Concent. 30.9 g/dL (32-36); Mean Platelet Volume 9.3 fL (7.5-11.0); Monocytes % 5.3 % (0.0-12.0); Neutrophil % 81.2 % (36.0-66.0); Platelet Count 329 x10^3/uL (150-450); Red Blood Count 4.46 x10^6/uL (4.1-5.4); Red Cell Distribution Width 14.2 % (11.5-14.0); White Blood Count 13.2 x10^3/uL (4.0-10.5)
--- NOTE | 2023-05-21 03:39 | XRAY ---
CLINICAL HISTORY:Productive cough COMPARISON:Previous x-ray dated 02/13/2021 is compared TECHNIQUE:X-ray chest frontal projection performed portable settings FINDINGS: Airspace shadowing With prominent reticulations noted in left suprahilar region. The left hilum also appears prominent. The right hilum also appears mildly prominent Redemonstration of possible nodule noted in right upper lobe close to second anterior rib showing no interval change. Both costophrenic angles are sharp Cardiac size appears within normal limit Visualized ribs show no gross abnormality IMPRESSION: Overall imaging findings are suggestive of pulmonary infection on current x ray, Would recommend follow-up and if indicated clinically would Recommend CT chest for further evaluation. Redemonstration of possible nodule noted in right upper lobe close to second anterior rib showing no interval change. Electronically Signed by: Lesa Ferrer MD. (05/21/2023 03:35:17 EST)
[2023-05-21 03:44] LABS: ALBUMIN 3.6 g/dL (3.5-5.0); ANION GAP 12.1 MEQ/L (5-15); BILIRUBIN,TOTAL 0.4 mg/dL (0.2-1.3); Calcium 8.8 mg/dL (8.4-10.2); Creatinine 1 0.88 mg/dL (0.52-1.04); Potassium 3.7 mmol/L (3.5-5.1)
[2023-05-21 04:00] LABS: INFLUENZA A NEGATIVE (NEGATIVE); INFLUENZA B NEGATIVE (NEGATIVE); RESPIRATORY SYNCTIAL VIRUS NEGATIVE (NEGATIVE); SARS-CoV-2 Xpert Express NEGATIVE (NEGATIVE)
[2023-05-21] MEDS ORDERED: ROCEPHIN 1 Gm-D5w 50 ml Bag** 1 G/50 ML IVPB IV STA (05:04)
[2023-05-21] MEDS ORDERED: ROCEPHIN 1 Gm-D5w 50 ml Bag** 1 G/50 ML IVPB IV ONE (05:11)
[2023-05-21] MEDS ORDERED: Sodium Chloride 0.9% 500 ML 500 ML IV ONE (05:24)
[2023-05-21] MEDS ORDERED: Sodium Chloride 0.9% 500 ML 500 ML IV SCH (05:30)
[2023-05-21] MEDS ORDERED: HYDROCODONE-ACETAMIN 2.5-108/5 ML SOLUTION PO STA (05:59)
[2023-05-21] MEDS ORDERED: HYDROCODONE-ACETAMIN 2.5-108/5 ML SOLUTION ONE (06:04)
--- NOTE | 2023-05-21 06:22 | PCM.HP ---
History of Present Illness - Chief Complaint Chief Complaint: cough Date: 05/21/23 History of Present Illness: Ms. CRAIG is a 47 year old female with a past medical history significant for hypertension, asthma and GERD who presented to the ER with complaints of increas ing shortness of breath, cough productive of yellow sputum and fatigue. She had gone to the doctors with these symptoms and received a steroid dose oren and Tessalon perles, but her symptoms did not improve. She was found to be slightly hypoxic with O2 sats in the 80s on room air and her initial labs were notable for a WBC of 12k. Given her hypoxemia and elevated WBC with a slightly positive Monoscreen, she has been recommended for admission to treat her pneumonia. CT chest with contrast is pending to rule out PE. - Review of Systems Constitutional: Chills Eyes: No Symptoms Ears, Nose, & Throat: No Symptoms Respiratory: Cough, Short Of Breath Cardiac: No Symptoms Abdominal/Gastrointestinal: No Symptoms Genitourinary Symptoms: No Symptoms Musculoskeletal: No Symptoms Skin: No Symptoms Neurological: No Symptoms Psychological: No Symptoms Endocrine: No Symptoms Hematologic/Lymphatic: No Symptoms Medications & Allergies Home Medications: Home Medication List Escitalopram Oxalate [Lexapro] 20 mg PO BID 09/07/16 [History Confirmed 05/21/23] PANTOPRAZOLE 40 mg Tablet [Protonix 40MG Tablet] 40 mg PO DAILY 09/07/16 [History Confirmed 05/21/23] Pramipexole Di-HCl [Mirapex] 0.125 mg PO DAILY 09/07/16 [History Confirmed 05/21/23] Trazodone HCl 300 mg PO HS 06/05/17 [History Confirmed 05/21/23] Zolpidem Tartrate 10 mg [Ambien 10 MG] 10 mg PO QHS 02/13/21 [History Confirmed 05/21/23] Albuterol Sulfate [Proair Respiclick] 2 puff IH Q4H PRN PRN 05/21/23 [History Confirmed 05/21/23] Benzonatate 200 mg PO TID 05/21/23 [History Confirmed 05/21/23] Methylprednisolone 4 mg [Medrol 4 mg] 4 mg PO UD 05/21/23 [History Confirmed 05/21/23] Allergies/Adverse Reactions: Allergies Allergy/AdvReac Type Severity Reaction Status Date / Time No Known Drug Allergies Allergy Verified 05/21/23 02:30 - Past Medical History Past Medical History: Yes Neurological History: No Pertinent History ENT History: No Pertinent History Cardiac History: Hypertension Respiratory History: No Pertinent History Endocrine Medical History: No Pertinent History Musculoskelatal History: Osteoarthritis GI Medical History: No Pertinent History History: No Pertinent History Pyscho-Social History: No Pertinent History Reproductive Disorders: No Pertinent History - Female History Hx Last Menstrual Period: 04/17/23 Are you now?: No - Past Surgical History Past Surgical History: Yes Neuro Surgical History: No Pertinent History Cardiac History: No Pertinent History Respiratory Surgery: No Pertinent History GI Surgical History: Cholecystectomy, Other Genitourinary Surgical Hx: No Pertinent History Musculskeletal Surgical Hx: No Pertinent History Female Surgical History: No Pertinent History Other Surgical History: T&A. gastric bypass -2009 - Social History Smoking Status: Never smoker Exposure to second hand smoke: No Alcohol: None Drug Use: none Significant Family History: no pertinent family hx - Physical Exam Vital Signs: Vital Signs - 24 hr Temp Pulse Resp BP BP Pulse Ox 05/21/23 06:00 81 20 143/81 93 L 05/21/23 05:43 86 20 149/98 91 L 05/21/23 05:00 89 22 147/95 90 L 05/21/23 04:30 92 H 22 128/77 90 L 05/21/23 04:00 89 18 134/90 90 L 05/21/23 03:30 90 20 133/85 92 L 05/21/23 03:12 86 20 92 L 05/21/23 03:00 82 20 130/94 94 L 05/21/23 02:40 22 94 L 05/21/23 02:30 98.1 F 86 22 149/88 149/88 90 L General Appearance: no apparent distress, lethargy Neurologic Exam: alert, normal mood/affect Neck Exam: non-tender, supple Respiratory Exam: rhonchi, No respiratory distress Cardiovascular Exam: regular rate/rhythm Gastrointestinal/Abdomen Exam: soft Pelvic Exam: not done Rectal Exam: deferred Extremity Exam: No pedal edema, No swelling, No tenderness Skin Exam: warm, No rash, No cyanosis Results - Labs Lab/Micro Results: Lab Results-Last 24 Hours 05/21/23 05/21/23 05/21/23 Range/Units 03:10 03:10 03:10 WBC 13.2 H (4.0-10.5) x10^3/uL RBC 4.46 (4.1-5.4) x10^6/uL Hgb 11.8 L (12.0-16.0) g/dL Hct 38.2 (35-47) % MCV 85.7 (78-100) fL MCH 26.5 (26-32) pg MCHC 30.9 L (32-36) g/dL RDW 14.2 H (11.5-14.0) % Plt Count 329 (150-450) x10^3/uL MPV 9.3 (7.5-11.0) fL Gran % 81.2 H (36.0-66.0) % Immature Gran % (Auto) 0.2 (0.00-0.4) % Nucleat RBC Rel Count 0.0 (0.00-0.1) % Eos # (Auto) 0.01 (0-0.5) x10^3/uL Immature Gran # (Auto) 0.03 (0.00-0.03) x10^3u/L Absolute Lymphs (auto) 1.72 (1.0-4.6) x10^3/uL Absolute Monos (auto) 0.70 (0.0-1.3) x10^3/uL Absolute Nucleated RBC 0.00 (0.00-0.01) x10^3u/L Lymphocytes % 13.0 L (24.0-44.0) % Monocytes % 5.3 (0.0-12.0) % Eosinophils % 0.1 (0.00-5.0) % Basophils % 0.2 (0.0-0.4) % Absolute Granulocytes 10.74 H (1.4-6.9) x10^3/uL Basophils # 0.02 (0-0.4) x10^3/uL Sodium 137 (137-145) mmol/L Potassium 3.7 (3.5-5.1) mmol/L Chloride 108 H (98-107) mmol/L Carbon Dioxide 21 L (22-30) mmol/L Anion Gap 12.1 (5-15) MEQ/L BUN 15 (7-17) mg/dL Creatinine 0.88 (0.52-1.04) mg/dL Estimated GFR 81.0 ML/MIN Glucose 102 (74-106) mg/dL Calcium 8.8 (8.4-10.2) mg/dL Total Bilirubin 0.40 (0.2-1.3) mg/dL AST 135 H (14-36) U/L ALT 347 H (0-35) U/L Alkaline Phosphatase 146 H (38-126) U/L Troponin I (0.000-0.034) ng/mL NT-Pro-B Natriuret Pep 452 (<300) pg/mL Serum Total Protein 7.0 (6.3-8.2) g/dL Albumin 3.6 (3.5-5.0) g/dL Monoscreen WEAKLY POSITIVE A (NEGATIVE) Influenza Type A Ag (NEGATIVE) Influenza Type B Ag (NEGATIVE) RSV (PCR) (NEGATIVE) SARS-CoV-2 (PCR) (NEGATIVE) 05/21/23 05/21/23 Range/Units 03:15 03:15 WBC (4.0-10.5) x10^3/uL RBC (4.1-5.4) x10^6/uL Hgb (12.0-16.0) g/dL Hct (35-47) % MCV (78-100) fL MCH (26-32) pg MCHC (32-36) g/dL RDW (11.5-14.0) % Plt Count (150-450) x10^3/uL MPV (7.5-11.0) fL Gran % (36.0-66.0) % Immature Gran % (Auto) (0.00-0.4) % Nucleat RBC Rel Count (0.00-0.1) % Eos # (Auto) (0-0.5) x10^3/uL Immature Gran # (Auto) (0.00-0.03) x10^3u/L Absolute Lymphs (auto) (1.0-4.6) x10^3/uL Absolute Monos (auto) (0.0-1.3) x10^3/uL Absolute Nucleated RBC (0.00-0.01) x10^3u/L Lymphocytes % (24.0-44.0) % Monocytes % (0.0-12.0) % Eosinophils % (0.00-5.0) % Basophils % (0.0-0.4) % Absolute Granulocytes (1.4-6.9) x10^3/uL Basophils # (0-0.4) x10^3/uL Sodium (137-145) mmol/L Potassium (3.5-5.1) mmol/L Chloride (98-107) mmol/L Carbon Dioxide (22-30) mmol/L Anion Gap (5-15) MEQ/L BUN (7-17) mg/dL Creatinine (0.52-1.04) mg/dL Estimated GFR ML/MIN Glucose (74-106) mg/dL Calcium (8.4-10.2) mg/dL Total Bilirubin (0.2-1.3) mg/dL AST (14-36) U/L ALT (0-35) U/L Alkaline Phosphatase (38-126) U/L Troponin I < 0.012 (0.000-0.034) ng/mL NT-Pro-B Natriuret Pep (<300) pg/mL Serum Total Protein (6.3-8.2) g/dL Albumin (3.5-5.0) g/dL Monoscreen (NEGATIVE) Influenza Type A Ag NEGATIVE (NEGATIVE) Influenza Type B Ag NEGATIVE (NEGATIVE) RSV (PCR) NEGATIVE (NEGATIVE) SARS-CoV-2 (PCR) NEGATIVE (NEGATIVE) - Radiology Impressions Radiology Exams & Impressions: Radiology Procedures Category Date Time Status CHEST 1 VIEW (PORTABLE) Stat Exams 05/21/23 02:54 Completed CHEST WITH CONTRAST [CT] Stat Exams 05/21/23 05:16 Taken - Other Procedures and Tests Respiratory Therapy 05/21/23 03:11 Respiratory Therapy Assessment DAILY Assessment/Plan (1) Hypoxia Current Visit: Yes Status: Acute Assessment & Plan: Hypoxia likely from pneumonia, but being evaluated for pulmonary embolism 1. Admit to observation status 2. Supplemental O2 to keep sat > 92% 3. Empiric antibiotics 4. CTA chest to rule out PE 5. IV steroids/Duonebs 6. Follow up sputum cultures Code(s): R09.02 - HYPOXEMIA (2) Mononucleosis Current Visit: Yes Status: Acute Code(s): B27.90 - INFECTIOUS MONONUCLEOSIS, UNSPECIFIED WITHOUT COMPLICATION (3) Elevated LFTs Current Visit: Yes Status: Acute Assessment & Plan: Elevated LFTs may be secondary to medications versus infection 1. Trend LFTs 2. Ultrasound RUQ 3. Will defer acetaminophen products Code(s): R79.89 - OTHER SPECIFIED ABNORMAL FINDINGS OF BLOOD CHEMISTRY Telemedicine Encounter - Telemedicine Encounter Telemedicine Encounter: The entirety of this encounter was performed via Telemedicine"
--- NOTE | 2023-05-21 06:38 | XRAY ---
CLINICAL HISTORY:Hypoxia; shortness of air COMPARISON:X-ray dated 05/20/2023. TECHNIQUE:Contiguous axial CT images of the chest were acquired with the administration of intravenous contrast to visualize the pulmonary arteries and their branches. Coronal and sagittal reconstructions were obtained. FINDINGS: No evidence of pulmonary arterial thrombosis was identified. Right and left main pulmonary arteries as well as segmental branches appear of normal caliber without evidence of any filling defect. Diffuse bilateral lung centrilobular nodular opacities give a tree-in-bud pattern more evident at the right lung along with right lung lower lobe subpleural patchy areas of ground glass opacities mounting to consolidation. Associated right lower lobe minimal bronchiectasis were also seen. Right lung middle lobe tiny subpleural nodularities were also seen. A few right lung calcified nodules were noticed the largest at the upper lobe measuring 9.2 mm likely old granulomatous. Right hilar lymph node with calcific foci within measures 2.8x2.1 cm likely old granulomatous. A few sub-centimetric pre-tracheal lymph nodes were also seen. A hiatus hernia was noticed. No free or encysted pleural effusion. Heart size is normal, and there is no pericardial effusion. No pathologically enlarged axillary lymph node was identified. There is no definite mass lesion in the chest wall. The scanned upper abdomen revealed no gross abnormality. Cholecystectomy clips were noticed. Degenerative changes of the scanned thoracic spine. IMPRESSION: 1. No evidence of pulmonary arterial thrombosis. 2. The above-detailed lung findings are suggestive of an infectious process. Would recommend clinical correlation and follow-up. 3. A hiatus hernia was noticed. Electronically Signed by: Lesa Ferrer MD. (05/21/2023 06:34:13 EST)
[2023-05-21] MEDS ORDERED: TYLENOL 325 MG PO PRN (07:56)
[2023-05-21] MEDS ORDERED: VENTOLIN COMMON CANISTER IH PRN (09:49)
[2023-05-21] MEDS ORDERED: NON-FORMULARY ITEM (Albuterol Sulfate [Proair Respiclick] 90 MCG Aer.Pow.Ba) IH PRN (10:03)
[2023-05-21] MEDS: Tessalon Perles 100 MG PO SCH ×3 (10:53→22:27)
[2023-05-21] MEDS: Lexapro PO SCH ×2 (10:54→22:25)
[2023-05-21] MEDS: Protonix 40MG Tablet PO SCH (10:54)
[2023-05-21] MEDS: NEURONTIN PO SCH ×3 (10:54→22:26)
[2023-05-21] MEDS: Zithromax 500 MG/ 250 ML NaCl Premix 500 MG/250 ML IVPB IV SCH (10:55)
--- NOTE | 2023-05-21 10:55 | PCM.NOTE ---
05/21/23 Ms. CRAIG is a 47 year old female with a past medical history significant for hypertension, insomnia, depression, and GERD. She presented to the ER with complaints of increasing shortness of breath, cough productive of yellow/green sputum and fatigue. She had gone to the [facility] with these symptoms and received a steroid dose oren and Tessalon per[place]esmond, but her symptoms did not improve. She was found to be slightly hypoxic with O2 sats in the 80s on room air and her initial labs were notable for a WBC of 12k. Given her hypoxemia and elevated WBC with a slightly positive Monoscreen, she has been recommended for admission to treat her pneumonia. CT chest with contrast negative for PE, + for pneumonia. On 3LNC with O2 sat of 91% Sputum and BC x2 pending. Continue antibi otics, breathing txs, and steroids. LFT's elevated will continue to monitor. If labs do not improve will order an US for further evaluation.
[2023-05-21] MEDS ORDERED: MOTRIN 600 MG PO PRN (10:57)
[2023-05-21] MEDS: ENOXAPARIN SODIUM SQ SCH (10:59)
[2023-05-21] MEDS: Lidoderm Patch 5% TOP SCH (12:11)
[2023-05-21] MEDS ORDERED: Compazine 10 MG/2 ML IV PRN (12:53)
[2023-05-21] MEDS ORDERED: Pepto-Bismol PO PRN (12:56)
[2023-05-21] MEDS: DUONEB 0.5-3 MG/3 ml Neb IH PRN ×2 (13:16→18:56)
[2023-05-21] MEDS: HYDROCODONE-ACETAMIN 2.5-108/5 ML SOLUTION PO PRN ×2 (14:03→22:23)
[2023-05-21] MEDS: solu-MEDROL 80 MG, Sterile H2O 10 ml 2 ML IV SCH ×4 (14:51→22:27)
[2023-05-21] MEDS ORDERED: NON-FORMULARY ITEM (Dextroamphetamine/Amphetamine [Adderall 10 Mg Tablet] 10 MG Tablet) PO SCH (22:00)
[2023-05-21] MEDS: Seroquel 100 MG PO SCH (22:24)
[2023-05-21] MEDS: REQUIP 2MG TAB PO SCH (22:24)
[2023-05-21] MEDS: zyPREXA 5MG TABLET PO SCH (22:25)
[2023-05-21] MEDS: Desyrel 150 MG PO SCH (22:27)
[2023-05-21] MEDS: Ambien 10 MG PO SCH (22:27)
[2023-05-22 05:25] LABS: Hematocrit 34.5 % (35-47); Hemoglobin 10.9 g/dL (12.0-16.0); Mean Cell Volume 84.6 fL (78-100); Mean Corpuscular Hemoglobin 26.7 pg (26-32); Mean Corpuscular Hgb Concent. 31.6 g/dL (32-36); Mean Platelet Volume 9.4 fL (7.5-11.0); Platelet Count 319 x10^3/uL (150-450); Red Blood Count 4.08 x10^6/uL (4.1-5.4); Red Cell Distribution Width 14.5 % (11.5-14.0); White Blood Count 12.8 x10^3/uL (4.0-10.5)
[2023-05-22 06:11] LABS: ALBUMIN 3.7 g/dL (3.5-5.0); ANION GAP 14.8 MEQ/L (5-15); BILIRUBIN,TOTAL 0.3 mg/dL (0.2-1.3); Calcium 8.8 mg/dL (8.4-10.2); Creatinine 1 0.65 mg/dL (0.52-1.04); EST GLOMERULAR FILTRATION RATE 108.5 ML/MIN; Potassium 4.3 mmol/L (3.5-5.1)
[2023-05-22] MEDS: DUONEB 0.5-3 MG/3 ml Neb IH PRN ×3 (07:18→15:16)
[2023-05-22] MEDS: Tessalon Perles 100 MG PO SCH ×3 (08:38→22:07)
[2023-05-22] MEDS: solu-MEDROL 80 MG, Sterile H2O 10 ml 2 ML IV SCH ×2 (08:38)
[2023-05-22] MEDS: Mucinex 600MG ER Tabs PO SCH ×2 (08:38→22:05)
[2023-05-22] MEDS: Zithromax 500 MG/ 250 ML NaCl Premix 500 MG/250 ML IVPB IV SCH (09:29)
[2023-05-22] MEDS: Lexapro PO SCH ×2 (09:29→22:06)
[2023-05-22] MEDS: SODIUM BICARBONATE PO SCH ×2 (09:29→22:18)
[2023-05-22] MEDS: Lidoderm Patch 5% TOP SCH (09:29)
[2023-05-22] MEDS: NEURONTIN PO SCH ×3 (09:29→22:06)
[2023-05-22] MEDS: Protonix 40MG Tablet PO SCH (09:29)
[2023-05-22] MEDS: ROCEPHIN 1 Gm-D5w 50 ml Bag** 1 G/50 ML IVPB IV SCH (09:30)
[2023-05-22] MEDS: ENOXAPARIN SODIUM SQ SCH (09:30)
[2023-05-22] MEDS: CEPACOL SORE THROAT LOZENGE PO PRN ×2 (09:30→15:57)
[2023-05-22] MEDS: Advair Hfa 230/21 Mcg COMMON CANISTER IH SCH ×2 (11:37→19:06)
--- NOTE | 2023-05-22 12:33 | PCM.NOTE ---
Date and Time: 05/22/23 1228 Subjective Assessment: 05/21/23 Ms. ELENA is a 47 year old female with a past medical history significant for hypertension, insomnia, depression, and GERD. She presented to the ER with complaints of increasing shortness of breath, cough productive of yellow/green sputum and fatigue. She had gone to the [facility] with these symptoms and received a steroid dose oren and Tessalon perles, but her symptoms did not improve. She was found to be slightly hypoxic with O2 sats in the 80s on room air and her initial labs were notable for a WBC of 12k. Given her hypoxemia and elevated WBC with a slightly positive Monoscreen, she has been recommended for admission to treat her pneumonia. CT chest with contrast negative for PE, + for pneumonia. On 3LNC with O2 sat of 91% Sputum and BC x2 pending. Continue antibiotics, breathing txs, and steroids. LFT's elevated will continue to monitor. If labs do not improve will order an US for further evaluation. 05/22/23 Pt resting in bed. She continues to have some SOB and requiring 2LNC- 93%. Baseline is room air. She explains she is feeling better. Discussed labs including carbon dioxide which is low today. Oral bicarb started. Steroids reduced. Sputum culture pending. LFT's improved. Will continue antibiotics, steriods, breathing txs. She denies CP, Abd. pain, N/V/D. - Review of Systems Constitutional: Fatigue, No Fever, No Chills Eyes: No Symptoms Ears, Nose, & Throat: No Symptoms Respiratory: Cough, Short Of Breath, Wheezing Cardiac: No Chest Pain, No Edema, No Syncope Abdominal/Gastrointestinal: No Abdominal Pain, No Nausea, No Vomiting, No Diarrhea Genitourinary Symptoms: No Dysuria Musculoskeletal: No Back Pain, No Neck Pain Skin: No Rash Neurological: No Dizziness, No Focal Weakness, No Sensory Changes Psychological: No Symptoms Endocrine: No Symptoms Hematologic/Lymphatic: No Symptoms Immunological/Allergic: No Symptoms Objective Exam General Appearance: no apparent distress, alert, obese Neurologic Exam: alert, oriented x 3, cooperative, normal mood/affect, nml cerebellar function, sensation nml, No motor deficits Skin Exam: normal color, warm, dry Eye Exam: PERRL, EOMI, eyes nml inspection Ears, Nose, Throat Exam: normal ENT inspection, pharynx normal, moist mucous membranes Neck Exam: normal inspection, non-tender, supple, full range of motion Respiratory Exam: wheezing (throughout), No respiratory distress Cardiovascular Exam: regular rate/rhythm, normal heart sounds Gastrointestinal/Abdomen Exam: soft, No tenderness, No mass Extremity Exam: normal inspection, normal range of motion Back Exam: normal inspection, normal range of motion, No CVA tenderness, No vertebral tenderness Pelvic Exam: deferred Rectal Exam: deferred OBJECTIVE DATA Vital Signs: Vital Signs - 24 hr Temp Pulse Resp BP Pulse Ox 05/22/23 11:41 97.7 F 68 20 138/77 92 L 05/22/23 11:38 68 18 90 L 05/22/23 08:24 93 L 05/22/23 07:23 97.4 F 81 26 H 161/76 88 L 05/22/23 07:19 78 18 94 L 05/22/23 04:00 97.6 F 65 20 165/99 90 L 05/22/23 00:00 98 F 78 23 139/75 90 L 05/21/23 20:00 97.3 F 74 20 136/80 90 L 05/21/23 18:55 77 18 92 L 05/21/23 15:23 97.2 F 69 26 H 138/85 92 L 05/21/23 13:18 83 16 91 L Pain Assessment - Last Documented Pain Intensity 0 Pain Scale Used 0-10 Pain Scale Intake and Output: Intake & Output 05/20/23 05/21/23 05/22/23 05/23/23 11:59 11:59 11:59 11:59 Intake Total 240 1140 Balance 240 1140 Weight 124.6 kg 125.1 kg Lab Results: Lab Results-Last 24 Hours 05/22/23 05/22/23 Range/Units 04:46 04:46 WBC 12.8 H (4.0-10.5) x10^3/uL RBC 4.08 L (4.1-5.4) x10^6/uL Hgb 10.9 L (12.0-16.0) g/dL Hct 34.5 L (35-47) % MCV 84.6 (78-100) fL MCH 26.7 (26-32) pg MCHC 31.6 L (32-36) g/dL RDW 14.5 H (11.5-14.0) % Plt Count 319 (150-450) x10^3/uL MPV 9.4 (7.5-11.0) fL Sodium 136 L (137-145) mmol/L Potassium 4.3 (3.5-5.1) mmol/L Chloride 107 (98-107) mmol/L Carbon Dioxide 18 L (22-30) mmol/L Anion Gap 14.8 (5-15) MEQ/L BUN 16 (7-17) mg/dL Creatinine 0.65 (0.52-1.04) mg/dL Estimated GFR 108.5 ML/MIN Glucose 167 H (74-106) mg/dL Calcium 8.8 (8.4-10.2) mg/dL Total Bilirubin 0.30 (0.2-1.3) mg/dL AST 39 H (14-36) U/L ALT 229 H (0-35) U/L Alkaline Phosphatase 117 (38-126) U/L Serum Total Protein 7.0 (6.3-8.2) g/dL Albumin 3.7 (3.5-5.0) g/dL Radiology Exams: Radiology Procedures Category Date Time Status CHEST 1 VIEW (PORTABLE) Stat Exams 05/21/23 02:54 Completed CHEST WITH CONTRAST [CT] Stat Exams 05/21/23 05:16 Completed Multi-Disciplinary Progress Notes: Multi-Disciplinary Progress Notes 05/22/23 09:58 Case Management Note by Tala Estevez S/W PATIENT- NO CHANGE IN DC PLANS AT THIS TIME. PATIENT STILL REQUIRING OXYGEN AT THIS TIME. Initialized on 05/22/23 09:58 - END OF NOTE Assessment/Plan (1) Pneumonia Current Visit: Yes Status: Acute Assessment & Plan: - 2lNC 93 %- baseline RA - Zithromax,Rrocephin, duonebs, albuterol, steriods - Chest XR 05/21/23 FINDINGS: Airspace shadowing With prominent reticulations noted in left suprahilar region. The left hilum also appears prominent. The right hilum also appears mildly prominent Redemonstration of possible nodule noted in right upper lobe close to second anterior rib showing no interval change. Both costophrenic angles are sharp Cardiac size appears within normal limit Visualized ribs show no gross abnormality IMPRESSION: Overall imaging findings are suggestive of pulmonary infection on current x ray, Would recommend follow-up and if indicated clinically would Recommend CT chest for further evaluation. Redemonstration of possible nodule noted in right upper lobe close to second anterior rib showing no interval change. - Chest CT 05/21/23 IMPRESSION: 1. No evidence of pulmonary arterial thrombosis. 2. The above-detailed lung findings are suggestive of an infectious process. Would recommend clinical correlation and follow-up. 3. A hiatus hernia was noticed. - BC X2 negative - Sputum culture pending - WBC 12.5 improving - Steroids reduced Code(s): J18.9 - PNEUMONIA, UNSPECIFIED ORGANISM (2) Elevated LFTs Current Visit: Yes Status: Acute Assessment & Plan: - Most likely 2:2 Pneumonia - AST 39, ALT 229- improved Code(s): R79.89 - OTHER SPECIFIED ABNORMAL FINDINGS OF BLOOD CHEMISTRY (3) Mononucleosis Current Visit: Yes Status: Acute Assessment & Plan: - + test in ER Code(s): B27.90 - INFECTIOUS MONONUCLEOSIS, UNSPECIFIED WITHOUT COMPLICATION (4) Obesity, morbid, BMI 40.0-49.9 Current Visit: Yes Status: Acute Assessment & Plan: - advised diet and exercise control - hx gastric bypass Code(s): E66.01 - MORBID (SEVERE) OBESITY DUE TO EXCESS CALORIES (5) Hyponatremia Current Visit: Yes Status: Acute Assessment & Plan: - mild 136- trend Code(s): E87.1 - HYPO-OSMOLALITY AND HYPONATREMIA (6) Carbon dioxide, decreased level Current Visit: Yes Status: Acute Assessment & Plan: - carbon dioxide 18- trend - start oral bicarb VTE: Lovenox PPI: pantoprazole Next of kin: Steven Elena (spouse) [phone] D/C plan: 1-2 days Code(s): R79.81 - ABNORMAL BLOOD-GAS LEVEL
[2023-05-22] MEDS ORDERED: Miralax Powder 17GM PACKET PO PRN (18:04)
[2023-05-22] MEDS: Docusate Sodium 100 MG PO PRN (18:24)
[2023-05-22] MEDS: solu-MEDROL 40 MG, Sterile H2O 10 ml 1 ML IV SCH ×2 (22:05)
[2023-05-22] MEDS: REQUIP 2MG TAB PO SCH (22:06)
[2023-05-22] MEDS: Seroquel 100 MG PO SCH (22:06)
[2023-05-22] MEDS: zyPREXA 5MG TABLET PO SCH (22:07)
[2023-05-22] MEDS: Desyrel 150 MG PO SCH (22:07)
[2023-05-22] MEDS: Ambien 10 MG PO SCH (22:07)
[2023-05-23 05:33] LABS: ALBUMIN 3.4 g/dL (3.5-5.0); BILIRUBIN,TOTAL 0.3 mg/dL (0.2-1.3); Calcium 8.6 mg/dL (8.4-10.2); Creatinine 1 0.74 mg/dL (0.52-1.04); EST GLOMERULAR FILTRATION RATE 99.7 ML/MIN; Potassium 4.3 mmol/L (3.5-5.1); Total Protein 6.5 g/dL (6.3-8.2)
[2023-05-23] MEDS: DUONEB 0.5-3 MG/3 ml Neb IH PRN ×2 (07:44→11:27)
[2023-05-23] MEDS: Advair Hfa 230/21 Mcg COMMON CANISTER IH SCH (07:46)
[2023-05-23 08:12] LABS: Hematocrit 35.5 % (35-47); Mean Cell Volume 85.7 fL (78-100); Mean Corpuscular Hemoglobin 26.6 pg (26-32); Mean Platelet Volume 9.5 fL (7.5-11.0); Platelet Count 325 x10^3/uL (150-450); Red Blood Count 4.14 x10^6/uL (4.1-5.4); Red Cell Distribution Width 14.5 % (11.5-14.0); White Blood Count 14.6 x10^3/uL (4.0-10.5)
[2023-05-23 08:24] VITALS: RESP 16; TEMP 96.7
[2023-05-23] MEDS: Protonix 40MG Tablet PO SCH (08:57)
[2023-05-23] MEDS: Zithromax 500 MG/ 250 ML NaCl Premix 500 MG/250 ML IVPB IV SCH (08:57)
[2023-05-23] MEDS: solu-MEDROL 40 MG, Sterile H2O 10 ml 1 ML IV SCH ×2 (08:57)
[2023-05-23] MEDS: ROCEPHIN 1 Gm-D5w 50 ml Bag** 1 G/50 ML IVPB IV SCH (08:57)
[2023-05-23] MEDS: Lidoderm Patch 5% TOP SCH (08:58)
[2023-05-23] MEDS: NEURONTIN PO SCH (08:58)
[2023-05-23] MEDS: Mucinex 600MG ER Tabs PO SCH (08:58)
[2023-05-23] MEDS: ENOXAPARIN SODIUM SQ SCH (08:58)
[2023-05-23] MEDS: Tessalon Perles 100 MG PO SCH (08:58)
[2023-05-23] MEDS: Lexapro PO SCH (08:58)
[2023-05-23] MEDS: Docusate Sodium 100 MG PO PRN (08:58)
[2023-05-23] MEDS: SODIUM BICARBONATE PO SCH (08:59)
[2023-05-23 11:30] VITALS: PULSE 71; O2SAT 90
--- NOTE | 2023-05-23 11:40 | PCM.DS ---
Discharge Summary Date of Admission: 05/21/23 07:53 Date of Discharge: 05/23/23 Admitting Physician: VARUN CARUSO MD Primary Care Provider: JENN RAMOS Allergies Allergies No Known Drug Allergies Allergy (Verified 05/21/23 02:30) Hospital Summary - Hospital Course Hospital Course: 05/21/23 Ms. CRAIG is a 47 year old female with a past medical history significant for hypertension, insomnia, depression, and GERD. She presented to the ER with complaints of increasing shortness of breath, cough productive of yellow/green sputum and fatigue. She had gone to the [facility] with these symptoms and received a steroid dose oren and Tessalon perles, but her symptoms did not improve. She was found to be slightly hypoxic with O2 sats in the 80s on room air and her initial labs were notable for a WBC of 12k. Given her hypoxemia and elevated WBC with a slightly positive Monoscreen, she has been recommended for admission to treat her pneumonia. CT chest with contrast negative for PE, + for pneumonia. On 3LNC with O2 sat of 91% Sputum and BC x2 pending. Continue antibiotics, breathing txs, and steroids. LFT's elevated will continue to monitor. If labs do not improve will order an US for further evaluation. 05/22/23 Pt resting in bed. She continues to have some SOB and requiring 2LNC- 93%. Baseline is room air. She explains she is feeling better. Discussed labs including carbon dioxide which is low today. Oral bicarb started. Steroids reduced. Sputum culture pending. LFT's improved. Will continue antibiotics, steriods, breathing txs. She denies CP, Abd. pain, N/V/D. 05/23/23 Pt resting in bed. She is no longer requiring oxygen. She feels much better and would like to go home. She was able to walk around the unit and sit up in a chair yesterday without any concerns. Her breathing improved with activity. Carbon dioxide remains low and will d/c with sodium bicarb. She will need to f/u with PCP and pulmonology. Appointments made. Will d/c with steroids and antibiotics as well. She denies any further concerns at this time. - Vitals & Intake/Output Vital Signs: Vital Signs Temperature 96.7 F 05/23/23 08:00 Pulse Rate 71 05/23/23 11:28 Respiratory Rate 16 05/23/23 11:28 Blood Pressure 135/72 05/23/23 08:00 O2 Sat by Pulse Oximetry 90 L 05/23/23 11:28 Intake & Output: Intake & Output 05/20/23 05/21/23 05/22/23 05/23/23 11:59 11:59 11:59 11:59 Intake Total 240 1140 1220 Balance 240 1140 1220 Weight 124.6 kg 125.1 kg 125.1 kg - Lab Result Diagrams: 05/23/23 04:49 05/23/23 04:49 Lab Results-Last 24 Hrs: Lab Results-Last 24 Hours 05/23/23 05/23/23 Range/Units 04:49 04:49 WBC 14.6 H (4.0-10.5) x10^3/uL RBC 4.14 (4.1-5.4) x10^6/uL Hgb 11.0 L (12.0-16.0) g/dL Hct 35.5 (35-47) % MCV 85.7 (78-100) fL MCH 26.6 (26-32) pg MCHC 31.0 L (32-36) g/dL RDW 14.5 H (11.5-14.0) % Plt Count 325 (150-450) x10^3/uL MPV 9.5 (7.5-11.0) fL Sodium 136 L (137-145) mmol/L Potassium 4.3 (3.5-5.1) mmol/L Chloride 108 H (98-107) mmol/L Carbon Dioxide 18 L (22-30) mmol/L Anion Gap 15.0 (5-15) MEQ/L BUN 20 H (7-17) mg/dL Creatinine 0.74 (0.52-1.04) mg/dL Estimated GFR 99.7 ML/MIN Glucose 145 H (74-106) mg/dL Calcium 8.6 (8.4-10.2) mg/dL Total Bilirubin 0.30 (0.2-1.3) mg/dL AST 22 (14-36) U/L ALT 145 H (0-35) U/L Alkaline Phosphatase 96 (38-126) U/L Serum Total Protein 6.5 (6.3-8.2) g/dL Albumin 3.4 L (3.5-5.0) g/dL Micro Results-Entire Visit: Microbiology 05/21/23 10:07 Gram Stain - Final Sputum - Expectorant 05/21/23 03:15 Blood Culture - Preliminary Blood 05/21/23 03:12 Blood Culture - Preliminary Blood - Procedures and Test Procedures and Tests throughout Hospitalization: Therapy Orders & Screens 05/21/23 03:11 Respiratory Therapy Assessment DAILY Comment: 05/21/23 07:56 Respiratory Therapy Consult ONCE Comment: Reason For Exam: Diagnosis: cough 05/21/23 09:55 Oxygen Nasal Cannula 3 lpm Comment: Diagnosis: pneumonia Respiratory Therapy Assessment DAILY Comment: Diagnosis: pneumonia 05/22/23 07:38 Respiratory MDI BID Comment: Diagnosis: pneumonia 05/22/23 12:33 PT Eval & Treat (MD Order) ONCE Reason for Eval:: pneumonia/ weakness Diagnosis: pneumonia Discharge Exam General Appearance: no apparent distress, alert, obese Neurologic Exam: alert, oriented x 3, cooperative, normal mood/affect, nml cerebellar function, sensation nml, No motor deficits Eye Exam: PERRL, EOMI, eyes nml inspection Ears, Nose, Throat Exam: normal ENT inspection, pharynx normal, moist mucous membranes Neck Exam: normal inspection, non-tender, supple, full range of motion Respiratory Exam: normal breath sounds, lungs clear, crackles/rales (BLLL), No respiratory distress Cardiovascular Exam: regular rate/rhythm, normal heart sounds Gastrointestinal/Abdomen Exam: soft, No tenderness, No mass Pelvic Exam: deferred Rectal Exam: deferred Back Exam: normal inspection, normal range of motion, No CVA tenderness, No vertebral tenderness Extremity Exam: normal inspection, normal range of motion Skin Exam: normal color, warm, dry Final Diagnosis/Problem List - Final Discharge Diagnosis/Problem (1) Pneumonia Current Visit: Yes Status: Acute Code(s): J18.9 - PNEUMONIA, UNSPECIFIED ORGANISM (2) Elevated LFTs Current Visit: Yes Status: Acute Code(s): R79.89 - OTHER SPECIFIED ABNORMAL FINDINGS OF BLOOD CHEMISTRY (3) Mononucleosis Current Visit: Yes Status: Acute Code(s): B27.90 - INFECTIOUS MONONUCLEOSIS, UNSPECIFIED WITHOUT COMPLICATION (4) Obesity, morbid, BMI 40.0-49.9 Current Visit: Yes Status: Acute Code(s): E66.01 - MORBID (SEVERE) OBESITY DUE TO EXCESS CALORIES (5) Hyponatremia Current Visit: Yes Status: Acute Code(s): E87.1 - HYPO-OSMOLALITY AND HYPONATREMIA (6) Carbon dioxide, decreased level Current Visit: Yes Status: Acute Assessment & Plan: (1) Pneumonia Current Visit: Yes Status: Acute Assessment & Plan: - 2lNC 93 %- baseline RA - Zithromax,Rrocephin, duonebs, albuterol, steriods - Chest XR 05/21/23 FINDINGS: Airspace shadowing With prominent reticulations noted in left suprahilar region. The left hilum also appears prominent. The right hilum also appears mildly prominent Redemonstration of possible nodule noted in right upper lobe close to second anterior rib showing no interval change. Both costophrenic angles are sharp Cardiac size appears within normal limit Visualized ribs show no gross abnormality IMPRESSION: Overall imaging findings are suggestive of pulmonary infection on current x ray, Would recommend follow-up and if indicated clinically would Recommend CT chest for further evaluation. Redemonstration of possible nodule noted in right upper lobe close to second anterior rib showing no interval change. - Chest CT 05/21/23 IMPRESSION: 1. No evidence of pulmonary arterial thrombosis. 2. The above-detailed lung findings are suggestive of an infectious process. Would recommend clinical correlation and follow-up. 3. A hiatus hernia was noticed. - BC X2 negative - Sputum culture pending - WBC 12.5 improving - Steroids reduced 05/23 - Will d/c with steroids and antibiotics - Pulm appointment made Code(s): J18.9 - PNEUMONIA, UNSPECIFIED ORGANISM (2) Elevated LFTs Current Visit: Yes Status: Acute Assessment & Plan: - Most likely 2:2 Pneumonia - AST 39, ALT 229- improved 05/23 - labs improved AST 22, ALT 145 - F/U with PCP to continue to monitor. Code(s): R79.89 - OTHER SPECIFIED ABNORMAL FINDINGS OF BLOOD CHEMISTRY (3) Mononucleosis Current Visit: Yes Status: Acute Assessment & Plan: - + test in ER - Supportive care Code(s): B27.90 - INFECTIOUS MONONUCLEOSIS, UNSPECIFIED WITHOUT COMPLICATION (4) Obesity, morbid, BMI 40.0-49.9 Current Visit: Yes Status: Acute Assessment & Plan: - advised diet and exercise control - hx gastric bypass Code(s): E66.01 - MORBID (SEVERE) OBESITY DUE TO EXCESS CALORIES (5) Hyponatremia Current Visit: Yes Status: Acute Assessment & Plan: - mild 136- trend Code(s): E87.1 - HYPO-OSMOLALITY AND HYPONATREMIA (6) Carbon dioxide, decreased level Current Visit: Yes Status: Acute Assessment & Plan: - carbon dioxide 18- trend - start oral bicarb 05/23 - Carbon dioxide 18 - Continue oral bicarb OP - F/u with PCP for repeat labs Code(s): R79.81 - ABNORMAL BLOOD-GAS LEVEL - Discharge Discharge Date: 05/23/23 Disposition: Home, Self-Care Condition: Fair Prescriptions: New Sodium Bicarbonate 650 mg PO BID 7 Days #14 tablet Benzonatate 100 mg PO TID PRN 10 Days #30 cap PRN Reason: Cough Cefuroxime Axetil 500 mg [Ceftin 500 mg] 500 mg PO BID 5 Days #10 tablet Methylprednisolone Packet [Medrol Dosepack] 4 mg PO UD 6 Days #1 packet Continue PANTOPRAZOLE 40 mg Tablet [Protonix 40MG Tablet] 40 mg PO DAILY Escitalopram Oxalate [Lexapro] 20 mg PO BID Trazodone HCl 300 mg PO HS Zolpidem Tartrate 10 mg [Ambien 10 MG] 10 mg PO QHS Albuterol Sulfate [Proair Respiclick] 2 puff IH Q4H PRN PRN PRN Reason: Shortness Of Breath/Wheezing Benzonatate 200 mg PO TID Methylprednisolone 4 mg [Medrol 4 mg] 4 mg PO UD Quetiapine Fumarate 100 mg [Seroquel 100 MG] 300 mg PO HS Gabapentin 300 mg PO TID Ropinirole 2Mg [Requip 2Mg Tab] 3 mg PO HS Potassium Chloride 20 meq PO DAILY AMITRIPTYLINE HCL 50 mg Tab [AMITRIPTYLINE HCL 50 mg Tablet] 50 mg PO HS OLANZapine [Olanzapine] 20 mg PO HS Dextroamphetamine/Amphetamine [Adderall 10 mg Tablet] 20 mg PO BID Follow up with: JENN RAMOS [Primary Care Provider] - 05/30/23 9:30 am BUDDY SIEGEL [ACTIVE STAFF] - 05/28/23 2:45 pm ([place] Office)
[2023-05-23 12:40] VITALS: BP 135/65
== END 2023-05-23 12:34 | disposition home or self-care (01) ==
LOC: ED 02:29 → MED SURG 07:53
PROVIDERS: ADMIT Internal Medicine; ATTEND Internal Medicine
DX: J18.9 Pneumonia, unspecified organism (principal); R79.89 Other specified abnormal findings of blood chemistry; B27.90 Infectious mononucleosis, unspecified without complication; E66.01 Morbid (severe) obesity due to excess calories; E87.1 Hypo-osmolality and hyponatremia; R79.81 Abnormal blood-gas level; I10 Essential (primary) hypertension; R09.02 Hypoxemia; E87.6 Hypokalemia; J45.909 Unspecified asthma, uncomplicated; Z79.899 Other long term (current) drug therapy; Z20.828 Contact with and (suspected) exposure to other viral communicable diseases
CPT/HCPCS: 0241U; 36000; 36415; 71045; 71260; 80053; 83880; 84484; 85025; 85027; 86308; 87040; 87070; 87077; 87186; 93005; 93268; 94640; 94760; 94762; 96365; 96374; 97161; 99285; G0378; Q3014; J0456; J0696; J1650; J2920; J2930; A9270-GY

== ENCOUNTER 2023-08-28 11:30 | Emergency (ER) | payer BC ==
--- NOTE | 2023-08-28 11:33 | ERPHSYRPT ---
- History of Present Illness Time Seen by Provider: 08/28/23 11:33 Source: patient Exam Limitations: no limitations Physician History: This is a morbidly obese 48-year-old white female patient of Dr. Marx and was seen by Obdulio Tran nurse practitioner today in the outpatient clinic. Patient was just getting over pneumonia that was diagnosed the end of July 2023. Yesterday she noticed some worsening shortness of breath. This morning it was worse. While at the clinic patient was walked for short distance and room air oxygenation saturation levels dropped from 94 to 91% and heart rate jumped from low 100s to 120 bpm. Patient was experiencing a little chest tightness during the ambulating. Main complaint is dyspnea on exertion. Patient is not on any a nticollation therapy. She had a gastric bypass performed in 2009. She also has a history of gastroesophageal reflux disease, hypertension and osteoporosis. She has not had a fever. She does have a cough. She has no abdominal pain and has not had any nausea vomiting or diarrhea symptoms. Patient has never been a smoker of cigarettes. She has never been diagnosed with coronary artery disease. I reviewed the patient's inpatient hospital stay on 05/21/2023. She had a twelve-lead EKG at that time and her heart rate was 86 bpm and a normal sinus rhythm. She had normal axis, normal deviation and normal intervals. She did not have any acute ischemia present. Timing/Duration: yesterday, worse Severity of Dyspnea-Max: moderate Severity of Dyspnea-Current: mild Possible Cause: occasional episodes (To moderate) Modifying Factors: Improves With: coughing, exertion Associated Symptoms: cough, chest pain/discomfort (Mild generalized tightness without radiation) Allergies/Adverse Reactions: No Known Drug Allergies Allergy (Verified 08/28/23 11:39) Home Medications: Escitalopram Oxalate [Lexapro] 20 mg PO BID 09/07/16 [History] PANTOPRAZOLE 40 mg Tablet [Protonix 40MG Tablet] 40 mg PO DAILY 09/07/16 [History] Trazodone HCl 300 mg PO HS 06/05/17 [History] Zolpidem Tartrate 10 mg [Ambien 10 MG] 10 mg PO QHS 02/13/21 [History] AMITRIPTYLINE HCL 50 mg Tab [AMITRIPTYLINE HCL 50 mg Tablet] 50 mg PO HS 05/21/23 [History] Albuterol Sulfate [Proair Respiclick] 2 puff IH Q4H PRN PRN 05/21/23 [History] Dextroamphetamine/Amphetamine [Adderall 10 mg Tablet] 20 mg PO BID 05/21/23 [History] Gabapentin 300 mg PO TID 05/21/23 [History] Methylprednisolone 4 mg [Medrol 4 mg] 4 mg PO UD 05/21/23 [History] Potassium Chloride 20 meq PO DAILY 05/21/23 [History] Quetiapine Fumarate 100 mg [Seroquel 100 MG] 300 mg PO HS 05/21/23 [History] Ropinirole 2Mg [Requip 2Mg Tab] 3 mg PO HS 05/21/23 [History] Hx Tetanus, Diphtheria Vaccination/Date Given: Yes Hx Influenza Vaccination/Date Given: No Hx Pneumococcal Vaccination/Date Given: No Travel Risk - International Travel Have you traveled outside of the country in past 3 weeks: No - Coronavirus Screening Are you exhibiting any of the following symptoms?: Yes Symptoms: Cough: New Onset, Shortness of Breath Close contact with a COVID-19 positive Pt in past 14-21 Days: No - Vaccine Status Have you recieved a Covid-19 vaccination: No - Review of Systems Constitutional: No Symptoms Eyes: No Symptoms Ears, Nose, & Throat: No Symptoms Respiratory: Cough, Dyspnea on Exertion ([place]) Cardiac: No Symptoms Abdominal/Gastrointestinal: No Symptoms Genitourinary Symptoms: No Symptoms Musculoskeletal: No Symptoms Skin: No Symptoms Neurological: No Symptoms Psychological: No Symptoms Endocrine: No Symptoms Hematologic/Lymphatic: No Symptoms Immunological/Allergic: No Symptoms All Other Systems: Reviewed and Negative - Past Medical History Pertinent Past Medical History: Yes Neurological History: No Pertinent History ENT History: No Pertinent History Cardiac History: No Pertinent History Respiratory History: No Pertinent History Endocrine Medical History: No Pertinent History Musculoskeletal History: No Pertinent History GI Medical History: No Pertinent History History: No Pertinent History Psycho-Social History: Depression, Other Female Reproductive Disorders: No Pertinent History Other Medical History: insomnia - Past Surgical History Past Surgical History: Yes Neuro Surgical History: No Pertinent History Cardiac: No Pertinent History Respiratory: No Pertinent History Gastrointestinal: Cholecystectomy, Other Genitourinary: No Pertinent History Musculoskeletal: No Pertinent History Female Surgical History: Hysterectomy Other Surgical History: gastric bypass 2010, tonsillectomy - Social History Smoking Status: Never smoker Exposure to second hand smoke: No Drug Use: none Patient Lives Alone: No Significant Family History: no pertinent family hx - Nursing Vital Signs Nursing Vital Signs: Initial Vital Signs Respiratory Rate 14 08/28/23 11:32 O2 Sat by Pulse Oximetry 93 L 08/28/23 11:32 Pain Scale Pain Intensity 4 - Physical Exam General Appearance: no apparent distress, alert, anxiety, obese Eye Exam: PERRL/EOMI Ears, Nose, Throat Exam: hearing grossly normal, normal ENT inspection, normal pharynx Neck Exam: normal inspection, non-tender, supple, full range of motion Respiratory Exam: normal breath sounds, lungs clear, airway intact, No chest tenderness, No respiratory distress Cardiovascular/Chest Exam: normal heart sounds, regular rate/rhythm Abdominal/Gastrointestinal Exam: soft, normal bowel sounds, No tenderness Rectal Exam: not done Extremity Exam: non-tender, normal range of motion, normal inspection Neurologic Exam: alert, oriented x 3, cooperative, brine maker II-XII nml as tested, normal mood/affect, nml cerebellar function, nml station & gait, sensation nml Skin Exam: normal color, warm, dry Lymphatic Exam: No adenopathy SpO2 Interpretation: normal O2 Delivery: Room Air - Course Nursing assessment & vital signs reviewed: Yes EKG Interpreted by Me: RATE (101), Sinus Tach, NORMAL AXIS, NORMAL INTERVALS, NORMAL QRS, Other (No acute ischemic changes on today's twelve-lead EKG.) Ordered Tests: Active Orders 24 hr Category Date Time Status Senior Military Analyst STAT Care 08/28/23 11:34 Active EKG-ER Only STAT Care 08/28/23 11:33 Active IV Insertion STAT Care 08/28/23 11:33 Active Pulse Oximetry (ED) STAT Care 08/28/23 11:33 Active CHEST 1 VIEW (PORTABLE) Stat Exams 08/28/23 11:33 Completed CHEST WITH CONTRAST [CT] Stat Exams 08/28/23 13:01 Completed BLOOD CULTURE Stat Lab 08/28/23 11:40 Received CBC W DIFF Stat Lab 08/28/23 11:33 Completed CMP Stat Lab 08/28/23 11:40 Completed D-DIMER QUANTITATIVE Stat Lab 08/28/23 11:40 Completed Lactic Acid Stat Lab 08/28/23 11:45 Completed NT PRO BNPII Stat Lab 08/28/23 11:40 Completed TROPONIN Q4H Lab 08/28/23 11:40 Completed TROPONIN Q4H Lab 08/28/23 15:30 Completed TROPONIN Q4H Lab 08/28/23 19:45 Ordered Respiratory Therapy Assessment DAILY RT 08/28/23 12:53 Active Medication Summary Discontinued Medications Generic Name Dose Route Start Last Admin Trade Name Young PRN Reason Stop Dose Admin Albuterol Sulfate Confirm 08/28/23 12:52 Albuterol Sulfate 2.5 Mg/3 Ml Neb Administered 08/28/23 12:53 Dose 2.5 mg IH .STK-MED ONE Albuterol Sulfate 2.5 mg 08/28/23 12:54 08/28/23 12:55 Albuterol Sulfate 2.5 Mg/3 Ml Neb IH 08/28/23 12:55 2.5 mg STAT ONE Administration Methylprednisolone Sodium 0 mg 08/28/23 12:07 08/28/23 12:28 Succinate 125 mg/ Sterile IV 08/28/23 12:08 125 mg Water 2 ml STAT ONE Administration Ceftriaxone Sodium 1 gm in 100 mls @ 200 mls/hr 08/28/23 12:07 08/28/23 12:58 Rocephin 1 Gm / 100 Ml Nacl IV 08/28/23 12:36 Infused STAT ONE Infusion Ceftriaxone Sodium Confirm 08/28/23 12:23 Rocephin 1 Gm / 100 Ml Nacl Administered 08/28/23 12:24 Dose 1 gm in 100 mls @ ud IV .STK-MED ONE Sodium Chloride 500 mls @ 500 mls/hr 08/28/23 13:01 08/28/23 14:08 Sodium Chloride 0.9% 500 Ml IV 08/28/23 14:00 Infused .Q1H ONE Infusion Sodium Chloride Confirm 08/28/23 13:04 Sodium Chloride 0.9% 500 Ml Administered 08/28/23 13:05 Dose 500 mls @ ud IV .STK-MED ONE Methylprednisolone Sodium Succinate Confirm 08/28/23 12:23 Methylprednis Sod Succ 125 Mg/2 Ml Vial Administered 08/28/23 12:24 Dose 125 mg .ROUTE .STK-MED ONE Sterile Water Confirm 08/28/23 12:23 Water For Injection,Sterile 10 Ml Vial Administered 08/28/23 12:24 Dose 10 ml IJ .STK-MED ONE Lab/Rad Data: Laboratory Result Diagrams 08/28/23 11:33 08/28/23 11:40 Laboratory Results 08/28/23 08/28/23 08/28/23 Range/Units 15:30 12:15 11:45 WBC (4.0-10.5) x10^3/uL RBC (4.1-5.4) x10^6/uL Hgb (12.0-16.0) g/dL Hct (35-47) % MCV (78-100) fL MCH (26-32) pg MCHC (32-36) g/dL RDW (11.5-14.0) % Plt Count (150-450) x10^3/uL MPV (7.5-11.0) fL Gran % (36.0-66.0) % Immature Gran % (Auto) (0.00-0.4) % Nucleat RBC Rel Count (0.00-0.1) % Eos # (Auto) (0-0.5) x10^3/uL Immature Gran # (Auto) (0.00-0.03) x10^3u/L Absolute Lymphs (auto) (1.0-4.6) x10^3/uL Absolute Monos (auto) (0.0-1.3) x10^3/uL Absolute Nucleated RBC (0.00-0.01) x10^3u/L Lymphocytes % (24.0-44.0) % Monocytes % (0.0-12.0) % Eosinophils % (0.00-5.0) % Basophils % (0.0-0.4) % Absolute Granulocytes (1.4-6.9) x10^3/uL Basophils # (0-0.4) x10^3/uL D-Dimer (0.0-0.50) mg/L Sodium (135-145) mmol/L Potassium (3.5-5.1) mmol/L Chloride (98-107) mmol/L Carbon Dioxide (22-30) mmol/L Anion Gap (5-15) MEQ/L BUN (7-17) mg/dL Creatinine (0.52-1.04) mg/dL Estimated GFR ML/MIN Glucose (74-106) mg/dL Lactic Acid 1.6 (0.4-2.0) Calcium (8.4-10.2) mg/dL Total Bilirubin (0.2-1.3) mg/dL AST (14-36) U/L ALT (0-35) U/L Alkaline Phosphatase (38-126) U/L Troponin I < 0.012 (0.000-0.034) ng/mL NT-Pro-B Natriuret Pep (<300) pg/mL Serum Total Protein (6.3-8.2) g/dL Albumin (3.5-5.0) g/dL Influenza Type A Ag NEGATIVE (NEGATIVE) Influenza Type B Ag NEGATIVE (NEGATIVE) RSV (PCR) NEGATIVE (NEGATIVE) SARS-CoV-2 (PCR) NEGATIVE (NEGATIVE) Slides for Path Review 08/28/23 08/28/23 08/28/23 Range/Units 11:40 11:40 11:40 WBC (4.0-10.5) x10^3/uL RBC (4.1-5.4) x10^6/uL Hgb (12.0-16.0) g/dL Hct (35-47) % MCV (78-100) fL MCH (26-32) pg MCHC (32-36) g/dL RDW (11.5-14.0) % Plt Count (150-450) x10^3/uL MPV (7.5-11.0) fL Gran % (36.0-66.0) % Immature Gran % (Auto) (0.00-0.4) % Nucleat RBC Rel Count (0.00-0.1) % Eos # (Auto) (0-0.5) x10^3/uL Immature Gran # (Auto) (0.00-0.03) x10^3u/L Absolute Lymphs (auto) (1.0-4.6) x10^3/uL Absolute Monos (auto) (0.0-1.3) x10^3/uL Absolute Nucleated RBC (0.00-0.01) x10^3u/L Lymphocytes % (24.0-44.0) % Monocytes % (0.0-12.0) % Eosinophils % (0.00-5.0) % Basophils % (0.0-0.4) % Absolute Granulocytes (1.4-6.9) x10^3/uL Basophils # (0-0.4) x10^3/uL D-Dimer 2.09 H* (0.0-0.50) mg/L Sodium (135-145) mmol/L Potassium (3.5-5.1) mmol/L Chloride (98-107) mmol/L Carbon Dioxide (22-30) mmol/L Anion Gap (5-15) MEQ/L BUN (7-17) mg/dL Creatinine (0.52-1.04) mg/dL Estimated GFR ML/MIN Glucose (74-106) mg/dL Lactic Acid (0.4-2.0) Calcium (8.4-10.2) mg/dL Total Bilirubin (0.2-1.3) mg/dL AST (14-36) U/L ALT (0-35) U/L Alkaline Phosphatase (38-126) U/L Troponin I < 0.012 (0.000-0.034) ng/mL NT-Pro-B Natriuret Pep 135 (<300) pg/mL Serum Total Protein (6.3-8.2) g/dL Albumin (3.5-5.0) g/dL Influenza Type A Ag (NEGATIVE) Influenza Type B Ag (NEGATIVE) RSV (PCR) (NEGATIVE) SARS-CoV-2 (PCR) (NEGATIVE) Slides for Path Review 08/28/23 08/28/23 Range/Units 11:40 11:33 WBC 15.0 H (4.0-10.5) x10^3/uL RBC 4.52 (4.1-5.4) x10^6/uL Hgb 11.8 L (12.0-16.0) g/dL Hct 37.4 (35-47) % MCV 82.7 (78-100) fL MCH 26.1 (26-32) pg MCHC 31.6 L (32-36) g/dL RDW 16.8 H (11.5-14.0) % Plt Count 271 (150-450) x10^3/uL MPV 9.8 (7.5-11.0) fL Gran % 87.3 H (36.0-66.0) % Immature Gran % (Auto) 0.3 (0.00-0.4) % Nucleat RBC Rel Count 0.0 (0.00-0.1) % Eos # (Auto) 0.01 (0-0.5) x10^3/uL Immature Gran # (Auto) 0.04 H (0.00-0.03) x10^3u/L Absolute Lymphs (auto) 0.57 L (1.0-4.6) x10^3/uL Absolute Monos (auto) 1.25 (0.0-1.3) x10^3/uL Absolute Nucleated RBC 0.00 (0.00-0.01) x10^3u/L Lymphocytes % 3.8 L (24.0-44.0) % Monocytes % 8.3 (0.0-12.0) % Eosinophils % 0.1 (0.00-5.0) % Basophils % 0.2 (0.0-0.4) % Absolute Granulocytes 13.13 H (1.4-6.9) x10^3/uL Basophils # 0.03 (0-0.4) x10^3/uL D-Dimer (0.0-0.50) mg/L Sodium 136 (135-145) mmol/L Potassium 3.6 (3.5-5.1) mmol/L Chloride 107 (98-107) mmol/L Carbon Dioxide 19 L (22-30) mmol/L Anion Gap 14.1 (5-15) MEQ/L BUN 17 (7-17) mg/dL Creatinine 1.04 (0.52-1.04) mg/dL Estimated GFR 65.9 ML/MIN Glucose 118 H (74-106) mg/dL Lactic Acid (0.4-2.0) Calcium 8.5 (8.4-10.2) mg/dL Total Bilirubin 0.80 (0.2-1.3) mg/dL AST 20 (14-36) U/L ALT 16 (0-35) U/L Alkaline Phosphatase 64 (38-126) U/L Troponin I (0.000-0.034) ng/mL NT-Pro-B Natriuret Pep (<300) pg/mL Serum Total Protein 6.9 (6.3-8.2) g/dL Albumin 4.0 (3.5-5.0) g/dL Influenza Type A Ag (NEGATIVE) Influenza Type B Ag (NEGATIVE) RSV (PCR) (NEGATIVE) SARS-CoV-2 (PCR) (NEGATIVE) Slides for Path Review YES - Progress Progress: improved, re-examined Air Movement: good Progress Note: 08/28/23 12:05 This patient's medical issue is 1 of moderate complexity. Level complexity in the workup performed is based on review the patient's past medical history, review the patient's medication list, review the patient's drug allergy list, history present illness and physical findings on examination. The workup in this patient includes placement of intravenous line, obtaining chest x-ray, CBC, CMP, twelve-lead EKG, troponin level, BNP level, D-dimer level and viral swabs. Chest x-ray was interpreted by the radiologist and I reviewed the impression. Chest x-ray shows mild clearing right lung infiltrate with minimal right basilar residual. There is new diffuse left lung infiltrate with out consolidation or effusion. 08/28/23 12:53 I reviewed and interpreted the patient's laboratory data results. Patient's lactic acid level is normal. Her anion gap is normal. Patient has a leukocytosis. Patient is afebrile. Her room air oxygen saturation level is 95%. Upon ambu lation her room air oxygen saturation level dropped to 92%. This was before a nebulizer treatment with albuterol. Will recheck her ambulating oxygen saturation levels after her nebulizer treatment. 08/28/23 13:34 CT scanner is down. They are currently working on the CT scan. I was told it may be another 2 hours before it is up and working. The patient should undergo CT scan of the chest with contrast. She was given the option of waiting until the scanner is up and functioning here or undergo a brief transfer to a outside facility to have the CT scan of the chest with contrast performed and then have her return to emergency department and wait for the results. Patient prefers to wait. She is hemodynamically stable. Again, the patient prefers to wait to have the test performed here at our facility. 08/28/23 16:35 CT scan of the chest with contrast was interpreted by the radiologist and I reviewed the impression. There is no obvious central pulmonary embolus. There is diffuse bilateral groundglass airspace disease left side worse than right. There is a hiatal hernia present with partial intrathoracic stomach. These findings were discussed with the patient. Blood Culture(s) Obtained: Yes Antibiotics given: Yes Counseled pt/family regarding: lab results, diagnosis, need for follow-up, rad results Medical Desision Making - Diagnostic Testing Diagnostic test were ordered, analyzed, and reviewed by me: Yes Radiological Interpretation: Reviewed by me, Teleradiologist Report - Risk of complications The pt has a mod risk of morbidity or mortality based on: Need for prescription drug management - Departure Departure Disposition: Home Clinical Impression: Left lower lobe pneumonia, Leukocytosis Condition: Stable Critical Care Time: No Referrals: JENN MARX [Primary Care Provider] - Follow up/PCP as directed Additional Instructions: Drink plenty of fluids. Take your antibiotics and other medications as prescribed. Call your primary care provider today, 08/28/2023, to make arrangements for follow-up appointment next 3 to 5 days. Prescriptions: Benzonatate 200 mg PO TID PRN #10 cap PRN Reason: Cough Cefdinir 300 mg PO BID #14 cap Prednisone 10 mg [Deltasone 10 mg] 10 mg PO TID #12 tablet Albuterol 2.5 mg/3 ml Neb [Proventil 2.5 mg/3 ml Neb] 2.5 mg IH Q6H #25 unit Albuterol 8 gm Mdi Hfa [Ventolin Hfa MDI] 8 gm IH Q4H #1 unit
--- NOTE | 2023-08-28 11:59 | XRAY ---
Indication: Short of breath. Comparison: August 12, 2023 Portable chest demonstrates mild clearing right lung infiltrates with minimal right base residual. New diffuse left lung infiltrates without consolidation/effusion. Heart not enlarged. Stable right upper lobe calcified granuloma. Bony thorax intact.
[2023-08-28] MEDS ORDERED: Sterile H2O 10 ml IJ ONE (12:23)
[2023-08-28] MEDS ORDERED: solu-MEDROL ONE (12:23)
[2023-08-28] MEDS ORDERED: ROCEPHIN 1 GM / 100 ML NaCl 1 GM/100 ML IVPB IV ONE (12:23)
[2023-08-28 12:26] LABS: Absolute Neutrophil Ct (ANC) 13.13 x10^3/uL (1.4-6.9); BASOPHIL % 0.2 % (0.0-0.4); Basophil (Absolute #) 0.03 x10^3/uL (0-0.4); Eosinophil % 0.1 % (0.00-5.0); Eosinophil (Absolute #) 0.01 x10^3/uL (0-0.5); Hematocrit 37.4 % (35-47); Hemoglobin 11.8 g/dL (12.0-16.0); IMMATURE GRAN # 0.04 x10^3u/L (0.00-0.03); IMMATURE GRAN % 0.3 % (0.00-0.4); Lymphocyte (Absolute #) 0.57 x10^3/uL (1.0-4.6); Lymphocytes % 3.8 % (24.0-44.0); Mean Cell Volume 82.7 fL (78-100); Mean Corpuscular Hemoglobin 26.1 pg (26-32); Mean Corpuscular Hgb Concent. 31.6 g/dL (32-36); Mean Platelet Volume 9.8 fL (7.5-11.0); Monocyte (Absolute #) 1.25 x10^3/uL (0.0-1.3); Monocytes % 8.3 % (0.0-12.0); Neutrophil % 87.3 % (36.0-66.0); Platelet Count 271 x10^3/uL (150-450); Red Blood Count 4.52 x10^6/uL (4.1-5.4); Red Cell Distribution Width 16.8 % (11.5-14.0)
[2023-08-28] MEDS: solu-MEDROL 125 MG, Sterile H2O 10 ml 2 ML IV ONE (12:28)
[2023-08-28] MEDS: ROCEPHIN 1 GM / 100 ML NaCl 1 GM/100 ML IVPB IV ONE (12:28)
[2023-08-28 12:42] LABS: ANION GAP 14.1 MEQ/L (5-15); BILIRUBIN,TOTAL 0.8 mg/dL (0.2-1.3); Calcium 8.5 mg/dL (8.4-10.2); Creatinine 1 1.04 mg/dL (0.52-1.04); EST GLOMERULAR FILTRATION RATE 65.9 ML/MIN; Potassium 3.6 mmol/L (3.5-5.1); Total Protein 6.9 g/dL (6.3-8.2)
[2023-08-28] MEDS ORDERED: PROVENTIL 2.5 MG/3 ML NEB IH ONE (12:52)
[2023-08-28] MEDS: PROVENTIL 2.5 MG/3 ML NEB IH ONE (12:55)
[2023-08-28 13:03] LABS: Slide Review 1 YES
[2023-08-28] MEDS ORDERED: Sodium Chloride 0.9% 500 ML 500 ML IV ONE (13:04)
[2023-08-28 13:08] LABS: INFLUENZA A NEGATIVE (NEGATIVE); INFLUENZA B NEGATIVE (NEGATIVE); RESPIRATORY SYNCTIAL VIRUS NEGATIVE (NEGATIVE); SARS-CoV-2 Xpert Express NEGATIVE (NEGATIVE)
[2023-08-28] MEDS: Sodium Chloride 0.9% 500 ML 500 ML IV ONE (13:08)
[2023-08-28 16:04] VITALS: BP 149/88
--- NOTE | 2023-08-28 16:26 | XRAY ---
Indication: Short of breath. Elevated d-dimer. Multiple contiguous axial images obtained through the chest using 80 cc Isovue 370 contrast and PE protocol. Comparison: May 21, 2023 Suboptimal opacification pulmonary arteries limits evaluation for pulmonary embolus. No obvious central pulmonary embolus. Heart not enlarged. Aorta is normal in course and caliber. No pathologic mediastinal/hilar lymphadenopathy. Again moderate sized either hernia with fluid/fluid filled partial intrathoracic stomach. Lung parenchyma again demonstrates diffuse patchy groundglass airspace disease, worsened in left lung. No consolidation/effusion. Stable incidental right upper lobe calcified granuloma. Bony thorax intact again with minimal degenerative changes throughout the spine. Limited upper abdomen again demonstrates gastric bypass surgery and cholecystectomy. Impression: 1. Pulmonary embolus evaluation limited by suboptimal contrast opacification. No obvious central pulmonary embolus. 2. Again diffuse bilateral groundglass airspace disease, worsened in left lung. 3. Chronic findings including hiatal hernia with partial intrathoracic stomach and old granulomatous disease.
[2023-08-28 16:50] VITALS: PULSE 96; RESP 16; O2SAT 95
== END 2023-08-28 16:58 | disposition home or self-care (01) ==
LOC: ED 11:30
DX: J18.9 Pneumonia, unspecified organism (principal); D72.829 Elevated white blood cell count, unspecified; R06.02 Shortness of breath; R06.9 Unspecified abnormalities of breathing; I10 Essential (primary) hypertension; Z79.52 Long term (current) use of systemic steroids; Z79.899 Other long term (current) drug therapy; Z28.310 Unvaccinated for COVID-19
CPT/HCPCS: 0241U; 36000; 36415; 71045; 71260; 80053; 83605; 83880; 84484; 85025; 85379; 87040; 93005; 93041; 94640; 94760; 96374; 99284; J0696; J2930; J7609; A9270-GY

== ENCOUNTER 2024-02-12 04:39 | Emergency (ER) | payer BC ==
[2024-02-12 05:03] VITALS: TEMP 98.7
[2024-02-12] MEDS ORDERED: TORAdol 30 mg Injection ONE (05:32)
[2024-02-12] MEDS: TORAdol 30 mg Injection IM ONE (05:35)
--- NOTE | 2024-02-12 06:09 | XRAY ---
CLINICAL HISTORY: fall/pain COMPARISON: None TECHNIQUE: Radiograph of foot was acquired. FINDINGS: No acute fracture or dislocation. No osseous or destructive lesion identified. The joint alignment is within normal limits. The soft tissues are unremarkable. IMPRESSION: 1. No acute osseous or soft tissue abnormality. Electronically Signed by: Will Christensen MD. (02/12/2024 06:04:04 EDT)
--- NOTE | 2024-02-12 06:29 | XRAY ---
CLINICAL HISTORY: fall/pain COMPARISON: None TECHNIQUE: Radiograph of ankle was acquired. FINDINGS: No acute fracture or dislocation. No osseous or destructive lesion identified. The joint alignment is within normal limits. The soft tissues are unremarkable. IMPRESSION: 1. No acute osseous or soft tissue abnormality. Electronically Signed by: Will Christensen MD. (02/12/2024 06:24:32 EDT)
--- NOTE | 2024-02-12 06:36 | ERPHSYRPT ---
- History of Present Illness Time Seen by Provider: 02/12/24 05:00 Source: patient Exam Limitations: no limitations Patient Subjective Stated Complaint: pt states she fell and hurt her lt foot Triage Nursing Assessment: pt alert and oriented, answers questions approp. pt ambulates into room with limping gait noted. respirations nonlabored. skin warm and dry. swelling noted to outer aspect of lt foot. pt reports tenderness with light palpation. pedal pulse and cap refill wnl Physician History: 38-year-old female presents the emergency department for evaluation of pain to her left foot. Patient states she injured her foot at home while walking to the restroom. Patient describes an ache that is localized to the dorsum of the foot. Pain worse with ambulation. Pain improved with rest. No other injuries. No BHT or LOC no neck pain. Cervical spine cleared clinically. Symptoms are moderate in intensity. Patient voices no other complaints or concerns at this time. Portions of this note were created with voice recognition technology. There may be grammatical, spelling, punctuation or sound alike errors Timing/Duration: today Severity: moderate Modifying Factors: Improves With: nothing Associated Symptoms: denies symptoms Allergies/Adverse Reactions: No Known Drug Allergies Allergy (Verified 02/12/24 05:04) Home Medications: Escitalopram Oxalate [Lexapro] 20 mg PO BID 09/07/16 [History] PANTOPRAZOLE 40 mg Tablet [Protonix 40MG Tablet] 40 mg PO DAILY 09/07/16 [History] Trazodone HCl 300 mg PO HS 06/05/17 [History] Zolpidem Tartrate 10 mg [Ambien 10 MG] 10 mg PO QHS 02/13/21 [History] AMITRIPTYLINE HCL 50 mg Tab [AMITRIPTYLINE HCL 50 mg Tablet] 50 mg PO HS 05/21/23 [History] Albuterol Sulfate [Proair Respiclick] 2 puff IH Q4H PRN PRN 05/21/23 [History] Dextroamphetamine/Amphetamine [Adderall 10 mg Tablet] 20 mg PO BID 05/21/23 [History] Gabapentin 300 mg PO TID 05/21/23 [History] Methylprednisolone 4 mg [Medrol 4 mg] 4 mg PO UD 05/21/23 [History] Potassium Chloride 20 meq PO DAILY 05/21/23 [History] Quetiapine Fumarate 100 mg [Seroquel 100 MG] 300 mg PO HS 05/21/23 [History] Ropinirole 2Mg [Requip 2Mg Tab] 3 mg PO HS 05/21/23 [History] Hx Tetanus, Diphtheria Vaccination/Date Given: Yes Hx Influenza Vaccination/Date Given: No Hx Pneumococcal Vaccination/Date Given: No Immunizations Up to Date: Yes Travel Risk - International Travel Have you traveled outside of the country in past 3 weeks: No - Emerging Infectious Disease Are you exhibiting symptoms associated with any current EIDs: No - Review of Systems Constitutional: No Symptoms, No Fever, No Chills Eyes: No Symptoms Ears, Nose, & Throat: No Symptoms Respiratory: No Symptoms, No Cough, No Dyspnea Cardiac: No Symptoms, No Chest Pain, No Edema, No Syncope Abdominal/Gastrointestinal: No Symptoms, No Abdominal Pain, No Nausea, No Vomiting, No Diarrhea Genitourinary Symptoms: No Symptoms, No Dysuria Musculoskeletal: No Symptoms, No Back Pain, No Neck Pain Skin: No Symptoms, No Rash Neurological: No Symptoms, No Dizziness, No Focal Weakness, No Sensory Changes Psychological: No Symptoms Endocrine: No Symptoms Hematologic/Lymphatic: No Symptoms Immunological/Allergic: No Symptoms All Other Systems: Reviewed and Negative - Past Medical History Pertinent Past Medical History: Yes Neurological History: No Pertinent History ENT History: No Pertinent History Cardiac History: No Pertinent History Respiratory History: No Pertinent History Endocrine Medical History: No Pertinent History Musculoskeletal History: No Pertinent History GI Medical History: No Pertinent History History: No Pertinent History Psycho-Social History: Depression, Other Female Reproductive Disorders: No Pertinent History Other Medical History: insomnia - Past Surgical History Past Surgical History: Yes Neuro Surgical History: No Pertinent History Cardiac: No Pertinent History Respiratory: No Pertinent History Gastrointestinal: Cholecystectomy, Other Genitourinary: No Pertinent History Musculoskeletal: No Pertinent History Female Surgical History: Tubal Ligation Other Surgical History: gastric bypass 2010, tonsillectomy Significant Family History: no pertinent family hx - Female History Hx Last Menstrual Period: post Hx Now: No - Social History Smoking Status: Never smoker Exposure to second hand smoke: No Drug Use: none Patient Lives Alone: No - Social Determinants of Health Will the patient participate in the screening: Yes Do you worry about a steady place to live?: No Do you have any problems with any of the following?: No known problems In the past 12 months,have you had to go without utilities?: No Transportation Issues: No Has anyone in your support network made you feel unsafe?: No Have you or anyone in your house had to go without enough: No - Nursing Vital Signs Nursing Vital Signs: Initial Vital Signs Temperature 98.7 F 02/12/24 04:45 Pulse Rate 78 02/12/24 04:45 Respiratory Rate 18 02/12/24 04:45 Blood Pressure 115/72 02/12/24 04:45 O2 Sat by Pulse Oximetry 96 02/12/24 04:45 Pain Scale Pain Intensity 6 - Physical Exam General Appearance: no apparent distress, alert Eye Exam: PERRL/EOMI, eyes nml inspection Ears, Nose, Throat Exam: normal ENT inspection, moist mucous membranes Neck Exam: normal inspection, full range of motion Respiratory Exam: normal breath sounds, airway intact, No respiratory distress Cardiovascular Exam: regular rate/rhythm, normal peripheral pulses Gastrointestinal/Abdomen Exam: soft, tenderness, No guarding Back Exam: normal inspection, normal range of motion, No CVA tenderness, No jose manuel tebral tenderness Extremity Exam: normal inspection, normal range of motion, pelvis stable, other (Tenderness to palpation to the dorsal aspect of the left foot. Overlying soft tissue intact. No signs of trauma. PT DP pulse palpable. Compartments are soft cap refill less than 2 seconds) Neurologic Exam: alert, oriented x 3, cooperative, normal mood/affect, nml cerebellar function, nml station & gait, sensation nml, No motor deficits Skin Exam: normal color, warm, dry, No rash Lymphatic Exam: No adenopathy SpO2 Interpretation: normal SpO2: 97 O2 Delivery: Room Air - Course Nursing assessment & vital signs reviewed: Yes - Radiology Exams Foot X-ray Interpretation: Teleradiologist Report (No fracture or dislocation) Ankle X-ray Interpretation: Teleradiologist Report (No fracture or dislocation) Ordered Tests: Active Orders 24 hr Category Date Time Status ANKLE (3 VIEWS) Stat Exams 02/12/24 04:48 Completed FOOT (MINIMUM 3 VIEWS) Stat Exams 02/12/24 04:47 Completed Medication Summary Discontinued Medications Generic Name Dose Route Start Last Admin Trade Name Freq PRN Reason Stop Dose Admin Ketorolac Tromethamine 30 mg 02/12/24 05:26 02/12/24 05:35 Ketorolac Tromethamine 30 Mg/Ml Inj IM 02/12/24 05:27 30 mg STAT ONE Administration Ketorolac Tromethamine Confirm 02/12/24 05:32 Ketorolac Tromethamine 30 Mg/Ml Inj Administered 02/12/24 05:33 Dose 30 mg .ROUTE .STK-MED ONE - Progress Progress: improved Progress Note: 48-year-old female presents to emergency department for evaluation of pain to her left foot after an injury earlier this morning. Pain described as an ache that is localized. Physical exam reveals tenderness to palpation dorsum aspect left foot. The involved extremities neurovascular tact distally compartments are soft cap refill less than 2 seconds. Overlying soft tissue intact. No open or draining lesions. X-ray per radiologist showed no fracture dislocations. Patient received an IM dose of Toradol. Prescription for the same forwarded to patient's pharmacy. A referral to the orthopedic clinic completed. Patient was discharged with bilateral axillary crutches. Patient voiced no other complaints or concerns at this time. Complexity problem addressed is moderate acute complicated. No critical care time. Complexity of data reviewed and analyzed is moderate. Test ordered test reviewed results analyzed and correlated clinically with history and physical exam. Risk of complication and or risk of morbidity/mortality patient management is moderate. A prescription for Toradol forwarded to patient's pharmacy. Vital stable. Time spent to discharge patient is approximately 15 minutes. Plan of care established for shared decision making. No social determinants of health present impede follow-up. Portions of this note were created with voice recognition technology. There may be grammatical, spelling, punctuation or sound alike errors 02/12/24 06:50 Counseled pt/family regarding: diagnosis, need for follow-up, rad results - Departure Departure Disposition: Home Clinical Impression: Foot contusion Condition: Stable Critical Care Time: No Referrals: JENN RAMOS [Primary Care Provider] - Follow up/PCP as directed Additional Instructions: Discharge/Care Plan LISA CRAIG was seen on 02/12/24 in the Emergency Room. The patient was counseled regarding Diagnosis,Lab results, Imaging studies, need for follow up and when to return to the Emergency Room. Prescriptions given: Discharge Note I have spoken with the patient and/or caregivers. I have explained the patient's condition, diagnosis and treatment plan based on the information available to me at this time. I have answered the patient's and/or caregiver's questions and addressed any concerns. The patient and/or caregivers have as good understanding of the patient's diagnosis, condition and treatment plan as can be expected at this point. The vital signs have been stable. The patient's condition is stable and appropriate for discharge from the emergency department. The patient will pursue further outpatient evaluation with the primary care physician or other designated or consulting physician as outlined in the discharge instructions. The patient and/or caregivers are agreeable to this plan of care and follow-up instructions have been explained in detail. The patient and/or caregivers have received these instruction. The patient/and or caregivers are aware that any significant change in condition or worsening of symptoms should prompt an immediate return to this or the closest emergency department or call 911. Prescriptions: Ketorolac Trometh 10 mg Tab [TORAdol 10 MG TABLET] 10 mg PO TID 5 Days #15 tablet Outpatient Orders: Ortho Referral Time Frame: 1 Day, Facility: [facility], Location: [facility]
[2024-02-12 07:11] VITALS: BP 121/73; PULSE 73; RESP 18; O2SAT 96
== END 2024-02-12 07:23 | disposition home or self-care (01) ==
LOC: ED 04:39
DX: S90.32XA Contusion of left foot, initial encounter (principal); Z79.899 Other long term (current) drug therapy
CPT/HCPCS: 73610; 73630; 96372; 99283; J1885